=== PATIENT | female | born 1965 | race Caucasian/White ===

== ENCOUNTER 2025-01-13 11:55 | Outpatient (CLI) | payer MEDICAID, SELFPAY ==
[2025-01-13 12:30] LABS: Hematocrit 46.3 % (36-47); Hemoglobin 15.10 g/dL (11.27-16.99); Mean Corpuscular HGB Conc 32.6 g/dL (30-55); Mean Corpuscular Hemoglobin 29.8 pg (27-33); Mean Corpuscular Volume 91.3 fl (85-98); Nucleated Red Blood Cells % 0 %; Platelet Count 477 10^3/cmm (157-399); Red Blood Count 5.07 10^6/uL (3.85-5.65); White Blood Count 9.05 10^3/uL (3.29-11.43)
[2025-01-13 12:50] LABS: Estmated Average Glucose 105; Hemoglobin A1C 5.3 % (4.0-6.0)
[2025-01-13 13:06] LABS: Alanine Aminotransferase 12 U/L (0-33); Albumin Level 4.5 g/dL (3.5-5.2); Alkaline Phosphatase 129 U/L (35-105); Anion Gap 14.2 (5-19); Aspartate Amino Transferase 18 U/L (0-32); Blood Urea Nitrogen 13 mg/dL (6-20); Calcium 9.4 mg/dL (8.5-10.5); Carbon Dioxide 27 mmol/L (22-29); Chloride 101 mmol/L (98-107); Cholesterol 319 mg/dL (0-200); Globulin 3.0 g/dL (1.3-4.6); Glucose 79 mg/dL (65-115); HDL Cholesterol 81 mg/dL (60-100); Iron 147 ug/dL (37-145); Osmolality Calculated 285 mOsm/kg (285-295); Potassium 4.2 mmol/L (3.5-5.1); Sodium 138 mmol/L (136-145); Thyroid Stimulating Hormone 0.08 uIU/mL (0.27-4.20); Total Iron Binding Capacity 310 mcg/dl; Total Protein 7.5 g/dL (6.6-8.7); Triglycerides 186 mg/dL (0-150); Unsaturated Iron Binding 163 ug/dL (112-347)
[2025-01-13 13:22] LABS: HIV 1 & 2 Antigen Non-Reactive (Non-Reactiv)
== END 2025-01-13 11:56 | disposition home or self-care (01) ==
PROVIDERS: PCP Family Medicine; Visit Provider Family Medicine
DX: R94.5 Abnormal results of liver function studies (principal); E78.5 Hyperlipidemia, unspecified; M05.9 Rheumatoid arthritis with rheumatoid factor, unspecified
CPT/HCPCS: 36415; 80053; 80061; 80157; 81596; 83036; 83540; 83550; 84443; 85025; 86803; 87806

== ENCOUNTER 2025-01-23 07:26 | Outpatient (CLI) | payer MEDICAID, SELFPAY ==
--- NOTE | 2025-01-23 07:30 | US_ITS ---
WS: [id number] RIGHT UPPER QUADRANT ULTRASOUND HISTORY: ABNORMAL LIVER FUNCTION TESTS COMPARISON: None available. Liver: 13.1 cm in length. Normal size liver and echogenicity. No bile duct dilatation or mass. Portal Vein: Normal hepatopetal flow with monophasic waveform. Gallbladder: Normally distended gallbladder with no stones or wall thickening. CBD: 0.4 cm Pancreas: Normal size and echogenicity. Right kidney: 10.6 cm in length. Normal size and echogenicity. No hydronephrosis or mass. Aorta and IVC: Unremarkable abdominal aorta and IVC. No ascites. US/US abdomen limited [id number] IMPRESSION: Normal right upper quadrant ultrasound.
== END 2025-01-23 07:27 | disposition home or self-care (01) ==
LOC: RAD 07:27
PROVIDERS: PCP Family Medicine; Visit Provider Family Medicine
DX: R94.5 Abnormal results of liver function studies (principal)
CPT/HCPCS: 76705

== ENCOUNTER 2025-03-06 09:43 | Outpatient (CLI) | payer MEDICAID, SELFPAY ==
--- NOTE | 2025-03-06 09:51 | MM_ITS ---
WS: [id number] BILATERAL SCREENING DIGITAL TOMOSYNTHESIS MAMMOGRAM WITH CAD HISTORY: SCREENING COMPARISON: None available. Bilateral CC and MLO views with tomosynthesis and synthetic mammography submitted. Computer aided detection analyzed. Breast composition: There are scattered areas of fibroglandular density. No suspicious masses, microcalcifications or architectural distortion. Benign coarse calcification RIGHT breast. MM/MM scr BI tomosynthesis [id number] IMPRESSION: BI-RADS: 2 - Benign. FOLLOW UP: 1 Year Follow-up
== END 2025-03-06 09:44 | disposition home or self-care (01) ==
LOC: RAD 09:47
PROVIDERS: PCP Family Medicine; Visit Provider Family Medicine
DX: Z12.31 Encounter for screening mammogram for malignant neoplasm of breast (principal); R92.323 Mammographic fibroglandular density, bilateral breasts; R92.1 Mammographic calcification found on diagnostic imaging of breast
CPT/HCPCS: 77063; 77067

== ENCOUNTER 2025-04-05 16:54 | Observation (INO) | payer MEDICAID, SELFPAY ==
--- OUTSIDE RECORDS SUMMARY | 2025-03-31 15:30 | XMS_ITS | Encounter Summary ---
Author Organization [facility] Address [address] [place] [address] Care Team Providers Care Hangersmith Name Role Phone Unavailable Primary Care Provider Unavailabl e Reason for Referral * Eval and Treat (Urgent) - Authorized Specialty Diagnoses / Procedures Referred By Contac t Referred To Contact Neurology Diagnoses Bilateral foot-drop Procedures NE OFFICE/OUTPATIENT ESTABLISHED MOD MDM 30 MIN NE OFFICE/OUTPATIENT NEW MODERATE MDM 45 MINUTES Lalitha Rai NP [address] [address] Phone: tel: fax: [address] [phone] Phone: tel: fax: Referral ID Status Reason Start Date Expiration Date V isits Requested Visits Authorized [id number] Authorized 03/31/2025 03/31/2026 1 1 AL SAW OPERATOR * Eval and Treat (Urgent) - Authorized Specialty Diagnoses / Procedures Referred By Contac t Referred To Contact Neurology Diagnoses Bilateral foot-drop Procedures NE OFFICE/OUTPATIENT ESTABLISHED MOD MDM 30 MIN NE OFFICE/OUTPATIENT NEW MODERATE MDM 45 MINUTES Lalitha Rai NP [address] [place] [address] Phone: tel: fax: [address] [phone] Phone: tel: fax: Referral ID Status Reason Start Date Expiration Date V isits Requested Visits Authorized [id number] Authorized 03/31/2025 03/31/2026 1 1 AL SAW OPERATOR * Outpatient Surgery (Routine) - Closed Specialty Diagnoses / Procedures Referred By Kathi mobley Referred To Contact Diagnoses History of colon polyps Procedures ENDOSCOPY, COLON, SCREENING NE COLONOSCOPY FLX DX W/COLLJ SPEC WHEN PFRMD NE COLONOSCOPY W/BIOPSY SINGLE/MULTIPLE NE COLSC FLX WITH DIRECTED SUBMUCOSAL NJX ANY SBST NE COLSC FLX W/RMVL OF TUMOR POLYP LESION SNARE TQ Lalitha Rai NP [address] [address] Phone: tel: fax: Referral ID Status Reason Start Date Expiration Date Visits Re quested Visits Authorized [id number] Closed 03/31/2025 05/01/2026 1 1 AL SAW OPERATOR Reason for Visit * Reason Comments Establish Care * Eval and Treat (Routine) - Closed Specialty Diagnoses / Procedures Referred By Kathi mobley Referred To Contact Gastroenterology Diagnoses Abnormal results of liver function studies Procedures NE OFFICE/OUTPATIENT ESTABLISHED MOD MDM 30 MIN NE OFFICE/OUTPATIENT NEW MODERATE MDM 45 MINUTES new request Rick Edwards MD [address] [place] [phone] Phone: tel: fax: [facility] [address] Phone: tel: fax: Referral ID Status Reason Start Date Expiration Date Visits Requested Visits Authorized [id number] Closed Performing Department to Schedule 01/15/2025 01/15/2026 1 1 Encounter Details Date Type Department Care Team (Late st Contact Info) Description 03/31/2025 3:30 PM RADIAL SAW OPERATOR Office Visit [facility] Gastroenterology[address] [address] Lalitha Rai NP [address] [facility] [address] [place] [address] Abnormal results of liver function studies (Primary Dx); Hiatal hernia with GERD; Constipation, unspecified constipation type; History of colon polyps; Bilateral foot-drop Social History Tobacco Use Types Packs/Day Years Used Date Smoking Tobacco: Former Cigarettes 0 Q uit: 06/29/2024 Tobacco Cessation:Counseling Given: No Alcohol Use Standard Drinks/Week Comments Not Currently 0 (1 standard drink = 0.6 oz pur e alcohol) Comments Unknown Sex and Gender Information Value Date Recorded Sex Assigned at Not on file Legal Sex Female 10:47 AM CDT Gender Identity Not on file Sexual Orientation Not on file documented as of this encounter Last Filed Vital Signs Vital Sign Reading Time Taken Comments Blood Pressure 96/62 03/31/2025 3:42 PM RADIAL SAW OPERATOR Pulse 69 03/31/2025 3:42 PM RADIAL SAW OPERATOR Temperature - - Respiratory Rate - - Oxygen Saturation - - Inhaled Oxygen Concentration - - Weight 74.8 kg (165 lb) 03/31/2025 3:42 PM RADIAL SAW OPERATOR Height 165.1 cm (5' 5 ) 03/31/2025 3:42 PM RADIAL SAW OPERATOR Body Mass Index 27.46 03/31/2025 3:42 PM RADIAL SAW OPERATOR documented in this encounter Progress Notes * Lalitha Rai NP - 03/31/2025 4:27 PM CST GI Clinic Note Neha Spear [facility] [id number] 03/31/2025 Collaborative physician: Hector Almodovar MD Referring Provider: No primary care provider on file. History of Present Illness The patient is a 59-year-old female who presents for a new patient evaluation and management, as well as a referral for abnormal liver function studies. She recently moved from the [facility]. She has a documented history of elevated liver enzymes and has been under the care of a mobile heavy equipment operator in [place], [place] within the past 6 months. A liver biopsy was performed approximately 5 months ago, but the results are not available. The cause ofher elevated liver enzymes remains undetermined. She has undergone lab work and an ultrasound at [place]. Ultrasound results not available for review. She reports no history of diabetes or hepatitis and is unaware of any signs of liver failure or decompensation. She has a family history of liver disease, with her maternal grandmother having from liver cancer and her maternal uncle from cirrhosis of the liver. Her mother is an alcoholic, but she is unsure if there is any underlying liver disease. She has a past history of occasional alcohol consumptionbut reports no current use or history of alcohol abuse. She has a history of constipation, typically having a bowel movement every week and a half. She reports feeling bloated and uncomfortable and has resorted to fasting to stimulate bowel movements. Shehas not used any [id number] medications such as MiraLAX. She has a history of polyps, which were removed during a colonoscopy in [place] approximately 15years ago. She reports no family history of colon cancer. She has a history of hiatal hernia, diagnosed during an upper endoscopy in [place], and occasionally experiences vomiting. She manages her symptoms through dietary modifications and does not take any medication for acid reflux. She has additional history of hypertension on spironolactone 25 mg. She takes meloxicam and gabapentin for history of rheumatoid arthritis. She is on levothyroxine for hypothyroidism. She takes Lasix20 mg for bilateral lower extremity edema. She reports a recent onset of difficulty walking, with daily falls and an inability to lift her foot, which started about a month ago. She has an appointment with a neurologist scheduled for 12/2025.She received a notice today that her insurance denied the MRI that her PCP doctor wanted to do. Shehas a history of back problems. She has a history of seizures and takes carbamazepine 200 mg three times daily as well as levetiracetam 500 mg twice daily. She has additional history of COPD. She quit smoking cigarettes about 9 months ago but currently vapes daily. She used to smoke cigarettes for 37 years. She uses cannabis rebollar daily. Alcohol: Occasional past use, no current use Tobacco: Quit smoking cigarettes 9 months ago, currently vapes daily Recreational Drugs: Uses cannabis daily Sexual Practices: Not currently sexually active, prefers male partners, had multiple partners last year PAST SURGICAL HISTORY: - Liver biopsy approximately 5 months ago - Colonoscopy with polyp removal approximately 15 years ago in [place] FAMILY HISTORY Her maternal grandmother of liver cancer. Her maternal uncle of cirrhosis of the liver. Her mother is a major alcoholic. FAMILY HISTORY: family history is not on file. PAST MEDICAL HISTORY: No past medical history on file. MEDICATIONS: Current Outpatient Medications on File Prior to Visit Medication Sig Dispense Refill Ventolin HFA 90 mcg/actuation inhaler Take 1 Puff by inhalation every 6 hours as needed. atorvastatin (LIPITOR) 20 mg tablet Take 1 Tablet by mouth daily. carBAMazepine (TEGretol) 200 mg tablet Take 1 Tablet by mouth 3 times daily. citalopram (CeleXA) 20 mg tablet Take 1 Tablet by mouth daily. furosemide (LASIX) 20 mg tablet Take 1 Tablet by mouth daily. gabapentin (NEURONTIN) 400 mg capsule Take 2 Capsules by mouth 3 times daily. levETIRAcetam (KEPPRA) 500 mg tablet Take 1 Tablet by mouth 2 times daily. levothyroxine 125 mcg tablet Take 1 Tablet by mouth daily. meloxicam (MOBIC) 15 mg tablet Take 1 Tablet by mouth daily. spironolactone (ALDACTONE) 25 mg tablet Take 1 Tablet by mouth daily. budesonide-formoteroL (SYMBICORT) 160-4.5 mcg/actuation HFA Aerosol Inhaler Take 2 Puffs by inhalation 2 times daily. No current facility-administered medications on file prior to visit. ALLERGIES: No Known Allergies REVIEW OF SYSTEMS: Complete ROS was negative aside from what was noted above. PHYSICAL EXAM: VITALS: BP 96/62 Pulse 69 Ht 5' 5 (1.651 m) Wt 74.8 kg (165 lb) BMI 27.46 kg/m?? GEN: Neha Spear is a 59 y.o. female in no acute distress. Using walker, noted bilateral foot drop on ambulation. HEENT: Mucous membranes pink and moist. Sclera anicteric. NECK: Trachea midline without obvious lymphadenopathy or thyromegaly. LUNGS: Regular respiratory effort, no intercostal retractions. HEART: Regular rate. No peripheral edema. ABD: Non-distended, Soft with normoactive BS. RECTAL: Not done at this time. EXT: Without cyanosis, deformity or pitting edema. SKIN: [place], warm, dry. LABS: No results found for: WBC , MANUALWBC , HGB , HGBPOC , HCT , HCTPOC , PLT , MCV No results found for: NA , K , CL , CO2 , CA , BUN , CREAT , GLUCOSE , TOTALPROTEIN , ALBUMIN , BILITOTAL , ALKPHOS , AST , ALT , ANIONGAP , BCRATIO Wt Readings from Last 3 Encounters: 03/31/25 74.8 kg (165 lb) No results found for: TSH , TSHULTRA , THYROIDSTIM No results found for: CRP , CRPHS DIAGNOSTICS: Results Labs - Hemoglobin A1c: 01/13/2025, 5.3 - CBC: 01/13/2025, Unremarkable with no leukocytosis, no anemia - Platelets: 01/13/2025, 477 - HIV: 01/13/2025, Negative - Alkaline Phosphatase: 01/13/2025, 129 - Hepatitis C: 01/13/2025, Negative - CMP: 01/13/2025, Normal kidney function, normal electrolytes - AST: 01/13/2025, 18 - ALT: 01/13/2025, 12 - Albumin: 01/13/2025, 4.5 - Total Bilirubin: 01/13/2025, 0.2 IMPRESSION and PLAN: Lynnette was seen today for establish care. Diagnoses and all orders for this visit: Abnormal results of liver function studies Hiatal hernia with GERD Constipation, unspecified constipation type - polyethylene glycol 3350 (MIRALAX) 17 gram/dose Powder; Take 1 Scoop (17 Grams) by mouth 2 times daily. Dissolve in 8 ounces of fluid and drink entire liquid - psyllium (FIBER-CAP) 0.52 gram Capsule; Take 3 Capsules by mouth 3 times daily. History of colon polyps - ENDOSCOPY, COLON, SCREENING; Future Bilateral foot-drop - AMB REFERRAL TO NEUROLOGY Assessment & Plan 1. Abnormal liver function studies: - Her alkaline phosphatase levels have been persistently elevated for several years, which could potentially be attributed to an autoimmune condition. - Recent lab results indicate normal AST, ALT, and bilirubin levels, with a slight elevation in alkaline phosphatase. - A request for her medical records from [place], [place] and [place] will be faxed. -If additional labs are required upon receipt of these records, she will be contacted to arrange them. -In the absence of her records by the next follow-up, the panel will be repeated. - She has been advised to abstain from alcohol and other hepatotoxic substances. -Bilateral lower extremity edema, She is taking Lasix 20 mg and spironolactone 25 mg daily 2. Constipation: - A prescription for MiraLAX, to be taken at a dosage of 1-2 scoops daily, has been provided. However, she is advised to start with 1 scoop daily and adjust the dosage based on her response. - The addition of a fiber supplement to her diet has also been recommended. - She is encouraged to maintain adequate hydration by consuming a minimum of 64 to 84 ounces of water daily. -Should she continue to experience constipation despite these measures, stronger prescription modalities may be considered. 3. Colon polyps: - A screening colonoscopy will be ordered due to her history of polyps removed approximately 15 years ago. 4. Hiatal hernia/GERD: -trial famotidine 20 mg BID for acid reflux - She reports occasional regurgitation and a previous diagnosis of a hiatal hernia. - She is advised to avoid foods that trigger her symptoms -With worsening symptoms consider repeat EGD 5. Bilateral foot drop: - She has a history of seizures and is currently on carbamazepine 200 mg three times daily and levetiracetam 500 mg twice daily. -Worsening bilateral lower extremity neuropathy and foot drop over the past month with frequent falls. >recommend referral for urgent referral to neurology Follow-up: The patient is scheduled for a follow-up visit in 3 to 4 months. Discussed alarm signs and symptoms that would indicate need for sooner follow up, such as new onsetor worsening dysphagia, evidence of bloody vomit or stool, weight loss, or changes in bowel habits. The patient indicates understanding of these issues and agrees with the plan. Total time taking care of the patient was greater than 45 minutes with greater than 50% of the timespent counseling the patient, coordinating their care, reviewing chart including labwork/procedure workup and other specialty notes Plan of care discussed and developed in collaboration with Hector Almodovar MD Tambra L Sellers, NP This note has been partially dictated using voice recognition software. Every effort has been made to ensure accuracy. Patient provided verbal consent for the use of [employer] to assist in documentation of today's visit. AL SAW OPERATOR documented in this encounter Miscellaneous Notes * Addendum Note - Ibrahima Meng RN - 04/01/2025 9:23 AM CSTAddended by: IBRAHIMA MENG on: 04/01/2025 09:23 AM Modules accepted: Orders AL SAW OPERATOR * Patient Instructions - Lalitha Rai NP - 03/31/2025 4:15 PM RADIAL SAW OPERATOR Thank you for coming to [facility] for your care and allowing me to beyour provider today. You may receive a survey about your experience. We would appreciate your feedback about your visit today. Your feedback will help us continually improve to better meet your needsand expectations. Below are some of the things we discussed today. If you have any questions or concerns, Call [phone], or contact us on the [employer]. We are blessed to be a part of your healthcare team. Thanks again for choosing [facility]. Lalitha Rai, MSN, HARD CANDY BATCH MIXER, SMT TECHNICIAN-C Gastroenterology >sign release to get [facility] >sign release to get records from [facility] liver workup including office notes, liverbiopsy and pathology report, and any labs or imaging. AL SAW OPERATOR AL SAW OPERATOR documented in this encounter Plan of Treatment Upcoming Encounters Date Type Department Care Team (Late st Contact Info) Description 05/11/2025 8:30 AM RADIAL SAW OPERATOR Office Visit [facility] Neurology - [place] [address] [place] [address] Geno Núñez MD [address] [place] [address] 08/05/2025 2:40 PM CDT Hospital Encounter [facility] Endoscopy [address] [place] [address] Hector Almodovar MD [address] [place] [address] 08/05/2025 2:40 PM CDT - 08/05/2025 3:00 PM CDT Surgery [facility] Endoscopy [address] [place] [address] Hector Almodovar MD [address] [facility] [address] [place] [address] COLONOSCOPY Scheduled Orders Name Type Priority Associated Diagnoses Orde r Schedule ENDOSCOPY, COLON, SCREENING GI Routine History of colon polyps Expected: 03/31/2025 (Approximate), Expires: 03/31/2026 Scheduled Procedures Name Priority Associated Diagnoses Date/Ti me COLONOSCOPY History of colon polyps 08/05/2025 2:40 PM CDT Scheduled Referrals Name Type Priority Associated Diagnoses Orde r Schedule AMB REFERRAL TO NEUROLOGY Outpatient Referral Routine Bilateral foot-drop Ordered: 03/31/2025 AMB REFERRAL TO NEUROLOGY Outpatient Referral Routine Bilateral foot-drop Ordered: 04/01/2025 documented as of this encounter Goals Goal Patient Goal Type Associated Problems Recent Progress Patient-Stated? Author Autogenera ángel Goal Care Plan Autogenerated Problem Ibrahima Trejo RN documented as of this encounter Visit Diagnoses Diagnosis Abnormal results of liver function studies- Primary Nonspecific abnormal results of liver function study Hiatal hernia with GERD Constipation, unspecified constipation type History of colon polyps Personal history of colonic polyps Bilateral foot-drop Other acquired deformity of ankle and foot documented in this encounter Additional Health Concerns Active Problems Noted Date Diagnosed Date Autogenerated Problem 04/01/2025 documented as of this encounter
[2025-04-05 16:54] VITALS: BP 150/82; PULSE 55; RESP 15; TEMP 36.2; O2SAT 98; BMI 29.4
--- OUTSIDE RECORDS SUMMARY | 2025-04-05 16:58 | XMS_ITS | Encounter Summary ---
Author Organization [facility] Address [address] [place] [address] Care Team Providers Care Orthopedic Rn Name Role Phone Unavailable Primary Care Provider Unavailabl e Encounter Details Date Type Department Care Team (Late st Contact Info) Description 04/01/2025 Abstract [facility] Gastroenterology- [place] [id number] [place] [address] Pretty Meng RN Social History Tobacco Use Types Packs/Day Years Used Date Smoking Tobacco: Former Cigarettes 0 Q uit: 06/29/2024 Alcohol Use Standard Drinks/Week Comments Not Currently 0 (1 standard drink = 0.6 oz pur e alcohol) Comments Unknown Sex and Gender Information Value Date Recorded Sex Assigned at Not on file Legal Sex Female 10:47 AM CDT Gender Identity Not on file Sexual Orientation Not on file documented as of this encounter Plan of Treatment Upcoming Encounters Date Type Department Care Team (Late st Contact Info) Description 05/11/2025 8:30 AM MANAGER THERAPY Office Visit [facility] Neurology [facility] [address] [facility] [address] [place] [address] Geno Núñez MD [address] [facility] [address] [place] [address] 08/05/2025 2:40 PM CDT Hospital Encounter [facility] Endoscopy [address] [place] [address] Hector Almodovar MD [address] [place] [address] 08/05/2025 2:40 PM CDT - 08/05/2025 3:00 PM CDT Surgery [facility] Endoscopy [address] [place] [address] Hector Almodovar MD [address] [place] [address] COLONOSCOPY Scheduled Procedures Name Priority Associated Diagnoses Date/Ti me COLONOSCOPY History of colon polyps 08/05/2025 2:40 PM CDT documented as of this encounter Goals Goal Patient Goal Type Associated Problems Recent Progress Patient-Stated? Author Autogenera ángel Goal Care Plan Autogenerated Problem No Pretty Meng RN documented as of this encounter Visit Diagnoses Not on filedocumented in this encounter Additional Health Concerns Active Problems Noted Date Diagnosed Date Autogenerated Problem 04/01/2025 documented as of this encounter
--- OUTSIDE RECORDS SUMMARY | 2025-04-05 16:58 | XMS_ITS | Clinical Summary ---
Author Organization [facility] de Address [address] [place] [address] Phone Care Team Providers Care Payroll Clerk Name Role Phone Unavailable Primary Care Provider Unavailabl e Allergies No known active allergies Medications Ventolin HFA 90 mcg/actuation inhaler Take 1 Puff by inhalation every 6 hours as needed. Active atorvastatin (LIPITOR) 20 mg tablet Take 1 Tablet by mouth daily. Active carBAMazepine (TEGretol) 200 mg tablet Take 1 Tablet by mouth 3 times daily. Active citalopram (CeleXA) 20 mg tablet Take 1 Tablet by mouth daily. Active furosemide (LASIX) 20 mg tablet Take 1 Tablet by mouth daily. Active gabapentin (NEURONTIN) 400 mg capsule Take 2 Capsules by mouth 3 times daily. Active levETIRAcetam (KEPPRA) 500 mg tablet Take 1 Tablet by mouth 2 times daily. Active levothyroxine 125 mcg tablet Take 1 Tablet by mouth daily. Active meloxicam (MOBIC) 15 mg tablet Take 1 Tablet by mouth daily. Active spironolactone (ALDACTONE) 25 mg tablet Take 1 Tablet by mouth daily. Active budesonide-formot Giselle (SYMBICORT) 160-4.5 mcg/actuation HFA Aerosol Inhaler Take 2 Puffs by inhalation 2 times daily. Active polyethylene glycol 3350 (MIRALAX) 17 gram/dose PowderIndications :Constipation, unspecified constipation type Take 1 Scoop (17 Grams) by mouth 2 times daily. Dissolve in 8 ounces of fluid and drink entire liquid 527 Gram 11 5 Active psyllium (FIBER-CAP) 0.52 gram CapsuleIndication s:Constipation, unspecified constipation type Take 3 Capsules by mouth 3 times daily. 5 Active famotidine (PEPCID) 20 mg tabletIndications :Hiatal hernia with GERD Take 1 Tablet (20 mg) by mouth 2 times daily. 60 Tablet 11 5 Active Active Problems No known active problems Encounters Date Type Department Care Team Description 04/01/2025 Abstract [facility] Gastroenterology[address] [phone] Pretty Meng RN 03/31/2025 3:30 PM GROUNDMAN/LINEMAN Office Visit [facility] Gastroenterology[address] [phone] Lalitha Rai NP Abnormal results of liver function studies (Primary Dx); Hiatal hernia with GERD; Constipation, unspecified constipation type; History of colon polyps; Bilateral foot-drop 01/15/2025 Orders Only [facility] Gastroenterology[address] [phone] Rick Edwards MD Abnormal results of liver function studies (Primary Dx) from Last 3 Months Social History Tobacco Use Types Packs/Day Years [...] on file Sexual Orientation Not on file Last Filed Vital Signs Vital Sign Reading Time Taken Comments Blood Pressure 96/62 03/31/2025 3:42 PM GROUNDMAN/LINEMAN Pulse 69 03/31/2025 3:42 PM GROUNDMAN/LINEMAN Temperature - - Respiratory Rate - - Oxygen Saturation - - Inhaled Oxygen Concentration - - Weight 74.8 kg (165 lb) 03/31/2025 3:42 PM GROUNDMAN/LINEMAN Height 165.1 cm (5' 5 ) 03/31/2025 3:42 PM GROUNDMAN/LINEMAN Body Mass Index 27.46 03/31/2025 3:42 PM GROUNDMAN/LINEMAN Plan of Treatment Upcoming Encounters Date Type Department Care Team (Late st Contact Info) Description 05/11/2025 8:30 AM GROUNDMAN/LINEMAN Office Visit [facility] Neurology - [place] [address] [facility] [address] [place] [phone] Geno Núñez MD [address] [phone] 08/05/2025 2:40 PM CDT Hospital Encounter [facility] Endoscopy [address] [place] [phone] Hector Almodovar MD [address] [phone] 08/05/2025 2:40 PM CDT - 08/05/2025 3:00 PM CDT Surgery [facility] Endoscopy [address] [place] [address] Hector Almodovar MD [address] [phone] COLONOSCOPY Scheduled Procedures Name Priority Associated Diagnoses Date/Ti me COLONOSCOPY History of colon polyps 08/05/2025 2:40 PM CDT Health Maintenance Due Date Last Done Comments Pre-Diabetes and Diabetes Screening 1965 HEPATITIS B VACCINES (1 of 3 - 19+ 3-dose series) 08/12 HPV/Cotest (21-29) 08/29/1988 CERVICAL CANCER SCREENING 08/29/1997 HPV/Cotest (30-65) 08/29/1997 PAP SMEAR 08/29/1997 BREAST CANCER SCREENING 2007 COLORECTAL SCREENING 08/29/2012 Colorectal Cancer Screening 08/29/2012 FIT-DNA Q 3 years 08/29/2012 FIT/FOBT Q 1 year 08/29/2012 Flex Sig/CT Colonography Q 5 years 08/29/2012 ZOSTER VACCINE (1 of 2) 08/29/2017 DTAP/TDAP/TD VACCINES (1 - Tdap) 11/12/2022 11/12/19 23 INFLUENZA VACCINE (#1) 2024 Goals Goal Patient Goal Type Associated Problems Recent Progress Patient-Stated? Author Autogenera ángel Goal Care Plan Autogenerated Problem No Pretty Meng RN Additional Health Concerns Active Problems Noted Date Diagnosed Date Autogenerated Problem 04/01/[address] [place] [address] HEALTH PLAN MEDICAID
--- NOTE | 2025-04-05 16:59 | W.ED.SEIZURE ---
HPI - Seizure General: Chief Complaint: Seizure Stated Complaint: seizure Time Seen by Provider: 04/05/25 16:55 Source: patient and EMS Mode of arrival: EMS Limitations: altered mental status (post ictal) History of Present Illness: HPI Narrative: Patient is a 59-year-old female presents to ED today via EMS after a seizure. She reportedly does have a history of seizures. According to her report, she was in the kitchen cooking when she had a seizure and fell backwards and struck her head. She later had another seizure after EMS arrived. Upon arrival, she is postictal. She smells of alcohol. She does admit to drinking as well as marijuana use. She states she has a history of epilepsy and takes Carbamazepine and Keppra. He states she has been compliant with these medications. She does complain of a headache. She arrives in a c-collar. Shortly after my examination, she was witnessed to have another seizure. MD complaint: seizure Onset (ago): hour(s) Description of Episode: loss of consciousness and tonic-clonic movement -: second(s) Witnessed: Yes - by Bystander Trauma: Yes Seizure History: Yes Place: Home Possible Precipitating Event: drug use and alcohol withdrawal Associated symptoms: Deny chest pain, chills, fever(s), malaise or syncope Treatments prior to arrival: none Related Data Home Medications ?Medication ?Instructions ?Recorded ?Confirmed albuterol sulfate 90 mcg/actuation 2 puff inhalation Q6H PRN 03/20/25 03/20/25 aerosol inhaler (Ventolin HFA) atorvastatin 20 mg tablet (Lipitor) 20 mg PO DAILY 03/20/25 03/20/25 carbamazepine 200 mg tablet 200 mg PO BID 03/20/25 03/20/25 (Epitol) citalopram 20 mg tablet 20 mg PO DAILY 03/20/25 03/20/25 duloxetine 20 mg capsule,delayed 20 mg PO BID 03/20/25 03/20/25 release fluticasone propionate 44 2 puff inhalation BID 03/20/25 03/20/25 mcg/actuation HFA aerosol inhaler furosemide 20 mg tablet (Lasix) 20 mg PO DAILY 03/20/25 03/20/25 gabapentin 400 mg capsule 400 mg PO TID 03/20/25 03/20/25 levetiracetam 500 mg tablet 500 mg PO BID 03/20/25 03/20/25 levothyroxine 200 mcg capsule 200 mcg PO DAILY 03/20/25 03/20/25 meloxicam 15 mg tablet 15 mg PO DAILY 03/20/25 03/20/25 naproxen sodium 550 mg tablet 550 mg PO Q12H PRN 03/20/25 03/20/25 spironolactone 25 mg tablet 25 mg PO DAILY 03/20/25 03/20/25 Previous Rx's ?Medication ?Instructions ?Recorded albuterol sulfate 0.63 mg/3 mL 0.63 mg (3 mL) inhalation QID PRN 03/20/25 solution for nebulization shortness of breath or wheezing #90 mL budesonide-formoterol HFA 160 2 puff inhalation BID #10.2 grams 03/20/25 mcg-4.5 mcg/actuation aerosol inhaler nebulizers #1 ea 03/20/25 tiotropium bromide 2.5 2 inh inhalation QAM #4 grams 03/20/25 mcg/actuation mist for inhalation Allergies Allergy/AdvReac Type Severity Reaction Status Date / Time No Known Allergies Allergy Verified 03/20/25 08:22 Review of Systems Narrative: post-ictal but does occasionally answer questions Const: Denies: fever(s), chills, body aches, fatigue or malaise Eyes: Denies: change in vision or blurry vision Card: Denies: chest pain, palpitations, irregular heart rhythm, lightheadedness, syncope or dyspnea on exertion Resp: Denies: dyspnea, productive cough or pain on inspiration GI: Denies: abdominal pain, nausea, vomiting, heartburn or diarrhea : Denies: dysuria Musc: Denies: neck pain, back pain or joint pain Skin/Breast: Denies: rash Neuro: Reports: headache(s) and seizure-like activity; Denies: dizziness PFSH ED PFSH: Medical History Ex-cigarette smoker Abnormal liver function test Seizure disorder Rheumatoid aortitis Osteoarthritis Lower extremity edema Hypothyroidism Hypertension Hyperlipidemia Depression COPD (chronic obstructive pulmonary disease) Asthma Surgical History Hx of tonsillectomy History of liver biopsy Family History Mother Heart disease Alcohol dependence Depression Social History Smoking and tobacco/nicotine status: current every day tobacco/nicotine user e-cigarettes E-Cigarette Details: vaporizer device and with nicotine E-cig/vape details: vapes daily-1 vape cartridge weekly Second hand smoke exposure: Yes Alcohol intake: current Substance/Drug Use: current Physical Exam Const: COMMON NORMALS: average body habitus, healthy appearing and well nourished GENERAL APPEARANCE: cooperative ORIENTATION/CONSCIOUSNESS: Yes awake, Yes oriented to person and Yes oriented to place OTHER: post-ictal HENMT: COMMON NORMALS: normocephalic HEAD & SCALP: normocephalic and hematoma FACE & SINUS: normal facial exam Eye: COMMON NORMALS: Equal, round and reactive pupils present and EOMs intact bilaterally GENERAL EYE: appearance normal, both eyes and all related structures and normal light reflex PUPIL: Yes Equal, round and reactive pupils present DIRECT OPHTHALMOSCOPY: Yes normal light reflex Neck/C-Spine: OTHER: in c-collar Chest: COMMONS NORMALS: normal inspection of the chest and normal palpation of entire chest wall Resp: COMMON NORMALS: normal respiratory effort and clear to auscultation bilaterally AUSCULTATION: clear to auscultation bilaterally Cardio: COMMON NORMALS: regular rate and regular rhythm RATE: regular rate RHYTHM: regular rhythm GI: COMMON NORMALS: Normal to inspection, nondistended, normoactive bowel sounds present, Soft to palpation, non-tender, No hepatosplenomegaly present and no masses PALPATION: Yes Soft to palpation and Yes No hepatosplenomegaly present : COMMON NORMALS: Yes no CVA tenderness BLADDER/KIDNEY EXAM: Yes no CVA tenderness Back/Pelvis: COMMON NORMALS: no CVA tenderness, thoracic and lumbar spine normal to inspection and no thoracic nor lumbar tenderness Extremity: GENERAL: Yes normal exam except as noted Neuro: SENSORIUM/ORIENTATION: Yes oriented to person and Yes oriented to place Course ED course: Dr. Victor also called to room when she began seizing. It lasted a few seconds. He is ordering IV medications including 2g Keppra and 2mg Ativan. Seizure pads placed. She did not require suctioning/oxygen. We will move her to room 10 as a precaution. Consultations: Consultation #1: Dr. Cavanaugh-accepts obs admit Vital Signs: Vital signs: Vital Signs Temperature 97.2 F L 04/05/25 16:54 Pulse Rate 54 L 04/05/25 19:58 Respiratory Rate 15 04/05/25 16:54 Blood Pressure 150/82 04/05/25 16:54 Pulse Oximetry 96 04/05/25 19:58 Oxygen Delivery Me thod Room Air 04/05/25 19:58 MDM - Seizure MDM Narrative Medical decision making narrative: Patient a 59-year-old female with a history of epilepsy currently on Carbamazepine and Keppra here after she had a seizure at home. Patient states she has been compliant with her medications. She reportedly fell backwards and struck her head. She did have an additional seizure immediately after my initial examination and another while in CT scan prior to medications being administered. She has not had any further seizures after IV Ativan and Keppra. Patient's blood work overall nonactionable. Mildly elevated lactic at 2.6 most likely is seizure related. No obvious evidence of infection. CT imaging did show a very small 1 to 2 mm possible trace acute extra-axial/subdural hemorrhage although radiologist stated this could be chronic. Discussed with Dr. Martin who felt this could probably be managed here by hospitalist and repeat CT imaging in 6 hours. He will also see/assess patient. I did discuss with hospitalist Dr. Cavanaugh who will admit patient with plan to repeat CT imaging in 6 hours. Requested obs admit. Differential Diagnosis Seizure Differential Diagnosis: Likely intractable seizure disorder, focal seizure, generalized seizure, epileptic seizure and status epilepticus Medical Records Attestation: I reviewed the patient's medical records. Lab Data Attestation: I reviewed the patient's lab results. 04/05/25 17:36 04/05/25 17:36 Labs: Radiology Impressions Chest X-Ray 04/05/25 17:03 IMPRESSION: 1. Bibasilar atelectasis. 2. Possible atelectasis versus early infectious process in the left lower lobe. Head CT 04/05/25 17:03 IMPRESSION: Trace acute extra-axial hemorrhage along the anterior interhemispheric fissure is not excluded. ADDENDUM: 04/05/251915 THIS REPORT CONTAINS FINDINGS THAT MAY BE CRITICAL TO PATIENT CARE. The findings were verbally communicated via telephone conference with MIGUEL ANGEL ANTHONY at 7:12 PM PICK UP AND DELIVERY DRIVER on 04/05/2025. The findings were acknowledged and understood. Cervical Spine CT 04/05/25 17:08 IMPRESSION: No acute cervical spine fracture. Laboratory Results WBC 9.77 10^3/uL (3.29-11.43) 04/05/25 17:36 RBC 4.38 10^6/uL (3.85-5.65) 04/05/25 17:36 Hgb 13.40 g/dL (11.27-16.99) 04/05/25 17:36 Hct 39.5 % (36-47) 04/05/25 17:36 MCV 90.2 fl (85-98) 04/05/25 17:36 MCH 30.6 pg (27-33) 04/05/25 17:36 MCHC 33.9 g/dL (30-55) 04/05/25 17:36 RDW 13.3 % (12.1-15.1) 04/05/25 17:36 Plt Count 379 10^3/cmm (157-399) 04/05/25 17:36 MPV 8.9 fL (7.4-10.4) 04/05/25 17:36 Neut % (Auto) 59.9 % 04/05/25 17:36 Lymph % (Auto) 28.5 % 04/05/25 17:36 Winston % (Auto) 6.3 % 04/05/25 17:36 Eos % (Auto) 4.0 % 04/05/25 17:36 Baso % (Auto) 0.8 % 04/05/25 17:36 Neut # (Auto) 5.85 10^3/uL (1.8-7.7) 04/05/25 17:36 Lymph # (Auto) 2.8 10^3/uL (0.8-4.8) 04/05/25 17:36 Winston # (Auto) 0.6 10^3/uL (0.2-0.9) 04/05/25 17:36 Eos # (Auto) 0.4 10^3/uL (0.0-0.8) 04/05/25 17:36 Baso # (Auto) 0.1 10^3/uL (0.0-0.1) 04/05/25 17:36 Nucleated RBC % (auto) 0 % 04/05/25 17:36 Nucleated RBCs # 0.0 /100WBC 04/05/25 17:36 Specimen Type Arterial 04/05/25 17:42 Sample Site Brachial, left 04/05/25 17:42 ABG pH 7.38 (7.35-7.45) 04/05/25 17:42 ABG pCO2 40.0 mmHg (35-45) 04/05/25 17:42 ABG pO2 79.6 mmHg (80.0-100.0) L 04/05/25 17:42 ABG PO2/FiO2 Ratio 379 04/05/25 17:42 ABG HCO3 23.5 mmol/L (22-26) 04/05/25 17:42 ABG O2 Saturation 96.4 04/05/25 17:42 ABG Base Excess -1.6 mmol/L (-2.0-2.0) 04/05/25 17:42 Dl Test N/a 04/05/25 17:42 A-a O2 Gradient 2.7 mmHg (5-10) L 04/05/25 17:42 Hematocrit 41.2 % (37-47) 04/05/25 17:42 Hgb O2 Saturation 92.5 % (95-100) L 04/05/25 17:42 Carboxyhemoglobin 3.1 %THgb (0.4-20.1) 04/05/25 17:42 Methemoglobin 1.1 % (0.4-1.5) 04/05/25 17:42 Total Hemoglobin 13.5 g/dL (12-16) 04/05/25 17:42 Sodium 138.0 mmol/L (131-143) 04/05/25 17:42 Potassium 3.6 mmol/L (3.5-5.0) 04/05/25 17:42 Glucose 84.0 mg/dL (70-115) 04/05/25 17:42 Ionized Calcium 1.1 mmol/L (1.1-1.4) 04/05/25 17:42 O2 Delivery Device Room air 04/05/25 17:42 FiO2 21.0 % 04/05/25 17:42 Grinder Outside Diameter ID Amh 04/05/25 17:42 Sodium 137 mmol/L (136-145) 04/05/25 17:36 Potassium 3.8 mmol/L (3.5-5.1) 04/05/25 17:36 Chloride 100 mmol/L (98-107) 04/05/25 17:36 Carbon Dioxide 22 mmol/L (22-29) 04/05/25 17:36 Anion Gap 18.8 (5-19) 04/05/25 17:36 BUN 12 mg/dL (6-20) 04/05/25 17:36 Creatinine 0.7 mg/dL (0.5-0.9) 04/05/25 17:36 GFR Calculation 86.2 mL/min (90-130) L 04/05/25 17:36 Glucose 81 mg/dL (65-115) 04/05/25 17:36 Calculated Osmolality 283 mOsm/kg (285-295) L 04/05/25 17:36 Lactic Acid 2.6 mmol/L (0.5-2.2) H 04/05/25 17:36 Calcium 8.4 mg/dL (8.5-10.5) L 04/05/25 17:36 Total Bilirubin 0.2 mg/dL (0.15-1.2) 04/05/25 17:36 AST 19 U/L (0-32) 04/05/25 17:36 ALT 19 U/L (0-33) 04/05/25 17:36 Alkaline Phosphatase 124 U/L (35-105) H 04/05/25 17:36 Total Protein 6.7 g/dL (6.6-8.7) 04/05/25 17:36 Albumin 4.0 g/dL (3.5-5.2) 04/05/25 17:36 Globulin 2.7 g/dL (1.3-4.6) 04/05/25 17:36 Urine Color Cancelled 04/05/25 19:53 Urine Color Yellow (Yellow) 04/05/25 19:53 Urine Appearance Cancelled 04/05/25 19:53 Urine Appearance Clear (CLEAR) 04/05/25 19:53 Urine pH 6.5 (5-7) 04/05/25 19:53 Urine pH Cancelled 04/05/25 19:53 Ur Specific Alleene 1.016 (1.005-1.030) 04/05/25 19:53 Ur Specific Alleene Cancelled 04/05/25 19:53 Urine Protein Cancelled 04/05/25 19:53 Urine Protein Negative (Negative) 04/05/25 19:53 Urine Glucose (UA) Cancelled 04/05/25 19:53 Urine Glucose (UA) Negative (Normal) 04/05/25 19:53 Urine Ketones Cancelled 04/05/25 19:53 Urine Ketones Negative (Negative) 04/05/25 19:53 Urine Blood Cancelled 04/05/25 19:53 Urine Blood Negative (Negative) 04/05/25 19:53 Urine Nitrate Cancelled 04/05/25 19:53 Urine Nitrate Negative (Negative) 04/05/25 19:53 Urine Bilirubin Cancelled 04/05/25 19:53 Urine Bilirubin Negative (Negative) 04/05/25 19:53 Prot Sulfosalicylic Acd Cancelled 04/05/25 19:53 Urine Urobilinogen 0.2 mg/dL (Negative) 04/05/25 19:53 Urine Urobilinogen Cancelled 04/05/25 19:53 Ur Leukocyte Esterase Cancelled 04/05/25 19:53 Ur Leukocyte Esterase Negative (Negative) 04/05/25 19:53 Urine RBC 0-2 /hpf (0-2) 04/05/25 19:53 Urine RBC Cancelled 04/05/25 19:53 Urine WBC 0-5 /hpf (0-5) 04/05/25 19:53 Urine WBC Cancelled 04/05/25 19:53 Ur Squamous Epith Cells 0-5 /hpf (0-5) 04/05/25 19:53 Ur Squamous Epith Cells Cancelled 04/05/25 19:53 Ur Transition Epith Cell Cancelled 04/05/25 19:53 Ur Renal Epithelial Cell Cancelled 04/05/25 19:53 Calcium Oxalate Crystal Cancelled 04/05/25 19:53 Uric Acid Crystals Cancelled 04/05/25 19:53 Triple Phos Crystals Cancelled 04/05/25 19:53 Other Crystals Cancelled 04/05/25 19:53 Amorphous Sediment Cancelled 04/05/25 19:53 Amorphous Sediment Not Reportable 04/05/25 19:53 Urine Bacteria Cancelled 04/05/25 19:53 Urine Bacteria None seen /hpf (NONE) 04/05/25 19:53 Hyaline Casts 1.21 /lpf 04/05/25 19:53 Hyaline Casts Cancelled 04/05/25 19:53 Fine Granular Casts Cancelled 04/05/25 19:53 Coarse Granular Casts Cancelled 04/05/25 19:53 RBC Casts Cancelled 04/05/25 19:53 Other Casts Cancelled 04/05/25 19:53 Urine Mucus Cancelled 04/05/25 19:53 Urine Trichomonas Cancelled 04/05/25 19:53 Urine Yeast Cancelled 04/05/25 19:53 Urine Sperm Cancelled 04/05/25 19:53 Ur Oval Fat Bodies Cancelled 04/05/25 19:53 Urine Opiates Screen Negative ng/mL (Negative) 04/05/25 19:53 Ur Barbiturates Screen Negative ng/mL (Negative) 04/05/25 19:53 Ur Phencyclidine Scrn Negative ng/mL (Negative) 04/05/25 19:53 Ur Amphetamines Screen Negative ng/mL (Negative) 04/05/25 19:53 U Benzodiazepines Scrn Positive ng/mL (Negative) H 04/05/25 19:53 Urine Cocaine Screen Negative ng/mL (Negative) 04/05/25 19:53 U Marijuana (THC) Screen Positive ng/mL (Negative) H 04/05/25 19:53 Ethyl Alcohol 26 mg/dL (0-10) H 04/05/25 17:36 All radiology interpretation(s) finalized by discharge Discharge Plan Discharge Patient Disposition: Placed in Observation Clinical Impression: Seizure disorder, Subdural hematoma Coding Level of Care Code ED Industrial Truck Driver for Yuliet White
--- NOTE | 2025-04-05 17:03 | CTR_ITS ---
PROCEDURE INFORMATION: Exam: CT Head Without Contrast Exam date and time: 04/05/2025 5:32 PM Age: 59 years old Clinical indication: Injury or trauma and condition or disease; Fall; Convulsions or seizures; Unspecified; Additional info: Trauma. Seizure TECHNIQUE: Imaging protocol: Computed tomography of the head without contrast. Radiation optimization: All CT scans at this facility use at least one of these dose optimization techniques: automated exposure control; mA and/or kV adjustment per patient size (includes targeted exams where dose is matched to clinical indication); or iterative reconstruction. COMPARISON: CT cervical spin wo con* [id number] 04/05/2025 5:32 PM RADIATION DOSE METRICS: Total DLP (mGy-cm): 1070.5 FINDINGS: Brain: Trace hyperattenuation is seen along the anterior interhemispheric fissure measuring 1-2 mm on image 32 of series 6. This could represent a chronic finding versus trace acute extra-axial/subdural hemorrhage. No mass effect. No midline shift. Cerebral ventricles: Within normal limits for age. Paranasal sinuses: Visualized sinuses are unremarkable. Mastoid air cells: Visualized mastoid air cells are well aerated. Bones: Unremarkable. Soft tissues: Posterior scalp hematoma. CT/CT head wo con* [id number] IMPRESSION: Trace acute extra-axial hemorrhage along the anterior interhemispheric fissure is not excluded.
--- NOTE | 2025-04-05 17:03 | XRR_ITS ---
PROCEDURE INFORMATION: Exam: XR Chest Exam date and time: 04/05/2025 5:32 PM Age: 59 years old Clinical indication: EMS arrival for seizure activity TECHNIQUE: Imaging protocol: Radiologic exam of the chest. Views: 1 view. COMPARISON: CT cervical spin wo con* [id number] 04/05/2025 5:32 PM FINDINGS: Lungs: Bibasal atelectasis. Possible atelectasis versus early infectious process in the left lower lobe. Pleural spaces: No pleural effusion or pneumothorax noted. Heart/Mediastinum: There is mild cardiomegaly. Bones/joints: No acute osseous abnormality. Intraperitoneal space: There is no free intraperitoneal gas. XR/XR chest 1V portable [id number] IMPRESSION: 1. Bibasilar atelectasis. 2. Possible atelectasis versus early infectious process in the left lower lobe.
--- NOTE | 2025-04-05 17:08 | CTR_ITS ---
PROCEDURE INFORMATION: Exam: CT Cervical Spine Without Contrast Exam date and time: 04/05/2025 5:32 PM Age: 59 years old Clinical indication: Injury or trauma; Fall; Blunt trauma; Additional info: Seizure TECHNIQUE: Imaging protocol: Computed tomography of the cervical spine without contrast. Radiation optimization: All CT scans at this facility use at least one of these dose optimization techniques: automated exposure control; mA and/or kV adjustment per patient size (includes targeted exams where dose is matched to clinical indication); or iterative reconstruction. COMPARISON: CT head wo con* [id number] 04/05/2025 5:32 PM RADIATION DOSE METRICS: Total DLP (mGy-cm): 232.5 FINDINGS: Bones: No acute cervical spine fracture. Straightening of cervical spine. Minimal likely chronic grade 1 anterolisthesis of C3 on C4. Multilevel degenerative disc disease, uncovertebral hypertrophy, and facet arthropathy. C5-C6 canal stenosis. Lungs: Lung apices are normal. Soft tissues: Unremarkable. CT/CT cervical spin wo con* [id number] IMPRESSION: No acute cervical spine fracture.
[2025-04-05] MEDS: LORazepam 2 mg/mL INJ 1 mL IVP (17:42)
[2025-04-05 17:44] LABS: Hematocrit 39.5 % (36-47); Hemoglobin 13.40 g/dL (11.27-16.99); Mean Corpuscular HGB Conc 33.9 g/dL (30-55); Mean Corpuscular Hemoglobin 30.6 pg (27-33); Mean Corpuscular Volume 90.2 fl (85-98); Nucleated Red Blood Cells % 0 %; Platelet Count 379 10^3/cmm (157-399); Red Blood Count 4.38 10^6/uL (3.85-5.65); White Blood Count 9.77 10^3/uL (3.29-11.43)
[2025-04-05] MEDS: levETIRAcetam 2,000 MG/200 ML PREMIX 400 MG IV (17:47)
[2025-04-05 17:53] LABS: ABG PCO2 40.0 mmHg (35-45); ABG PH Result 7.38 (7.35-7.45); Alveolar-Arterial Oxygen Gradi 2.7 mmHg (5-10); Arterial Blood Gas Hematocrit 41.2 % (37-47); Blood Gas Operator Identificat AMH; Blood Gas Sample Site Brachial, left; Blood Gas Sample Type Arterial; Carboxyhemoglobin 3.1 %THgb (0.4-20.1); Glucose Level-ABG 84.0 mg/dL (70-115); HCO3 ABG 23.5 mmol/L (22-26); Ionized Calcium Level - ABG 1.1 mmol/L (1.1-1.4); Methemoglobin 1.1 % (0.4-1.5); Oxygen Saturation ABG 96.4; PO2 ABG 79.6 mmHg (80.0-100.0); PO2 FiO2 Ratio Arterial Blood 379; Potassium Level - ABG 3.6 mmol/L (3.5-5.0); Sodium Level - ABG 138.0 mmol/L (131-143)
[2025-04-05 18:09] LABS: Alanine Aminotransferase 19 U/L (0-33); Albumin Level 4.0 g/dL (3.5-5.2); Alcohol Level 26 mg/dL (0-10); Alkaline Phosphatase 124 U/L (35-105); Anion Gap 18.8 (5-19); Aspartate Amino Transferase 19 U/L (0-32); Blood Urea Nitrogen 12 mg/dL (6-20); Calcium 8.4 mg/dL (8.5-10.5); Carbon Dioxide 22 mmol/L (22-29); Chloride 100 mmol/L (98-107); Globulin 2.7 g/dL (1.3-4.6); Glucose 81 mg/dL (65-115); Lactic Sepsis W/Reflex 2.6 mmol/L (0.5-2.2); Osmolality Calculated 283 mOsm/kg (285-295); Potassium 3.8 mmol/L (3.5-5.1); Sodium 137 mmol/L (136-145); Total Protein 6.7 g/dL (6.6-8.7)
--- NOTE | 2025-04-05 19:06 | PM.HP ---
Providers/Chief Complaint Primary Care Provider: Rick Edwards MD Chief Complaint: seizure History of Present Illness Neha Spear is a 59 year old female with history significant for seizure disorder, COPD, hypertension, and lower extremity weakness causing frequent falls for the past 6 months, who presents after sustaining a fall and subsequent seizures. Patient mentions she was in her kitchen when she got dizzy, stepped backwards and tripped on her own feet. Her next memory is that of being in the hospital. Her roommates were present for the fall and patient was told she had seizure activity around that time. It is not entirely clear if the patient had a seizure before or after her fall. Of note, the patient did have some beer this evening but did not finish her beverage and feels the dizziness may be related. For the past 6 months she has been having frequent falls and is set to see neurology for her legs not working. She has been using a walker to aid in ambulation but it was not near by at the time. She has been compliant with her prescribed medications and her keppra has recently been increased from 500mg to 1000mg BID. Last seizure was a few days ago per patient. She says she has fallen almost daily in the past 6 months. She otherwise denies recent illness, fevers, or chills. No other changes to her medication regimen. Medications/Allergies Home Medications ?Medication ?Instructions ?Recorded ?Confirmed ?Last Taken ?Type albuterol sulfate 0.63 mg/3 mL 0.63 mg (3 mL) inhalation QID PRN 03/20/25 03/20/25 Unknown Rx solution for nebulization shortness of breath or wheezing #90 mL albuterol sulfate 90 mcg/actuation 2 puff inhalation Q6H PRN 03/20/25 03/20/25 Unknown History aerosol inhaler (Ventolin HFA) atorvastatin 20 mg tablet (Lipitor) 20 mg PO DAILY 03/20/25 03/20/25 Unknown History budesonide-formoterol HFA 160 2 puff inhalation BID #10.2 grams 03/20/25 03/20/25 Unknown Rx mcg-4.5 mcg/actuation aerosol inhaler carbamazepine 200 mg tablet 200 mg PO BID 03/20/25 03/20/25 Unknown History (Epitol) citalopram 20 mg tablet 20 mg PO DAILY 03/20/25 03/20/25 Unknown History duloxetine 20 mg capsule,delayed 20 mg PO BID 03/20/25 03/20/25 Unknown History release fluticasone propionate 44 2 puff inhalation BID 03/20/25 03/20/25 Unknown History mcg/actuation HFA aerosol inhaler furosemide 20 mg tablet (Lasix) 20 mg PO DAILY 03/20/25 03/20/25 Unknown History gabapentin 400 mg capsule 400 mg PO TID 03/20/25 03/20/25 Unknown History levetiracetam 500 mg tablet 500 mg PO BID 03/20/25 03/20/25 Unknown History levothyroxine 200 mcg capsule 200 mcg PO DAILY 03/20/25 03/20/25 Unknown History meloxicam 15 mg tablet 15 mg PO DAILY 03/20/25 03/20/25 Unknown History naproxen sodium 550 mg tablet 550 mg PO Q12H PRN 03/20/25 03/20/25 Unknown History nebulizers #1 ea 03/20/25 03/20/25 Unknown Rx spironolactone 25 mg tablet 25 mg PO DAILY 03/20/25 03/20/25 Unknown History tiotropium bromide 2.5 2 inh inhalation QAM #4 grams 03/20/25 03/20/25 Unknown Rx mcg/actuation mist for inhalation Allergies Allergy/AdvReac Type Severity Reaction Status Date / Time No Known Allergies Allergy Verified 03/20/25 08:22 PFSH Acute PFSH: Medical History Ex-cigarette smoker Abnormal liver function test Seizure disorder Rheumatoid aortitis Osteoarthritis Lower extremity edema Hypothyroidism Hypertension Hyperlipidemia Depression COPD (chronic obstructive pulmonary disease) Asthma Surgical History Hx of tonsillectomy History of liver biopsy Family History Mother Heart disease Alcohol dependence Depression Social History Smoking and tobacco/nicotine status: current every day tobacco/nicotine user e-cigarettes E-Cigarette Details: vaporizer device and with nicotine E-cig/vape details: vapes daily-1 vape cartridge weekly Second hand smoke exposure: Yes Alcohol intake: current Substance/Drug Use: current Vitals/I&O/Wt Last Vital Signs Temp 97.2 F L 04/05/25 16:54 Pulse 55 L 04/05/25 16:54 Resp 15 04/05/25 16:54 BP 150/82 04/05/25 16:54 Pulse Ox 98 04/05/25 16:54 O2 Del Method Room Air 04/05/25 16:54 04/05/25 04/05/25 04/05/25 06:59 14:59 22:59 Intake Total 200 / 200 Balance 200 / 200 Weight last 48 hrs Weight 80.286 kg Physical Exam Const: COMMON NORMALS: no acute distress and patient oriented x3 HENMT: HEAD & SCALP: scalp tenderness (at the occiput) Resp: COMMON NORMALS: normal respiratory effort and clear to auscultation bilaterally Cardio: COMMON NORMALS: regular rate, regular rhythm, S1 normal heart sound present, S2 normal heart sound present, No gallops present (Cardio), No clicks present (Cardio), No murmurs present (Cardio) and No rub (Cardio) GI: COMMON NORMALS: Normal to inspection, nondistended, normoactive bowel sounds present, Soft to palpation and non-tender Neuro: OTHER: 1/5 lower extremity strength. Diminished sensation noted. Skin: COMMON NORMALS: no rashes or lesions noted Data 04/05/25 17:36 04/05/25 17:36 A&P Assessment and plan 1. Seizure disorder: - Unclear if truly had seizure but given traumatic injury and recent reports of seizure, will admit for closer monitoring - Continue her home AEDs, increase keppra to 1000mg BID - ED has provided 2000mg keppra prior to admission 2. Post-traumatic subdural hematoma, with unknown loss of consciousness status, initial encounter: - Question if CT findings represent true hematoma. Will repeat CT head without contrast in 6 hours for reassessment - Hold NSAID and chemical DVT prophylaxis 3. Fall, initial encounter: - Patient mentions dizziness but may be related to alcohol consumtion - Check echocardiogram - Check orthostatics 4. Weakness of both lower extremities: - Patient mentions she has a neurology appointment in [facility]. We do not have in-house nuerology available for 04/06 so she will need to keep this appointment - Will consult PT/OT for assessment PDMP PDMP Reviewed: Not Reviewed Attestations Medical Necessity Statement*: Patient is anticipated to need less than two midnights for inpatient management of recurrent falls and evaluation of possible subdural hematoma Coding Level of Care Code 40936 Diagnoses Seizure disorder G40.909 Post-traumatic subdural hematoma, with unknown loss of consciousness status, initial encounter S06.5XAA Encounter type: initial encounter Loss of consciousness presence/duration: unknown LOC status Fall, initial encounter W19.XXXA Encounter type: initial encounter Weakness of both lower extremities R29.898 Laterality: bilateral
[2025-04-05 19:28] LABS: Reflex Lactate Order REFLEX LACTIC ORDERD
[2025-04-05 19:58] VITALS: PULSE 54; O2SAT 96
[2025-04-05 20:04] LABS: Glucose Urine UA Negative (Normal); Nitrate Urine Negative (Negative); Specific Gravity, Urine 1.016 (1.005-1.030)
[2025-04-05 20:10] LABS: Carbamazepine Tegretol 13.0 ug/mL (4.0-12.0)
[2025-04-05 20:13] LABS: PCP Screen Urine Negative (Negative)
[2025-04-05 20:32] VITALS: BP 116/76; PULSE 59; O2SAT 99
[2025-04-05 20:40] VITALS: BP 112/70; PULSE 53; RESP 18; TEMP 36.3; O2SAT 95
[2025-04-05 20:48] LABS: Lactic Acid level (Lactate) 1.0 mmol/L (0.5-2.2)
[2025-04-05 20:56] VITALS: BMI 30.2
[2025-04-05 21:10] LABS: Hepatitis B Surface Antigen Non-Reactive (Nonreactive)
[2025-04-05 21:13] LABS: HIV 1 & 2 Antigen Non-Reactive (Non-Reactiv)
--- NOTE | 2025-04-05 23:00 | CTR_ITS ---
PROCEDURE INFORMATION: Exam: CT Head Without Contrast Exam date and time: 04/05/2025 11:18 PM Age: 59 years old Clinical indication: Other: F/u questionable hemorrhage; F/u for questionable hemorrhage along anterior interhemispheric fissure. ; Additional info: ? Subdural hemorrhage follow up TECHNIQUE: Imaging protocol: Computed tomography of the head without contrast. Radiation optimization: All CT scans at this facility use at least one of these dose optimization techniques: automated exposure control; mA and/or kV adjustment per patient size (includes targeted exams where dose is matched to clinical indication); or iterative reconstruction. COMPARISON: CT head wo con* [id number] 04/05/2025 5:32 PM RADIATION DOSE METRICS: Total DLP (mGy-cm): 1036.04 FINDINGS: Brain: No hemorrhage, no periventricular white matter disease. No mass effect. Basal cisterns are patent. Cerebral ventricles: No ventriculomegaly. Paranasal sinuses: No significant air-fluid levels noted in the visualized sinuses. Mastoid air cells: Mastoid air cells are aerated with no effusions. Bones: No acute osseous abnormality. Soft tissues: There is a scalp hematoma noted in the occipital region. CT/CT head wo con* [id number] IMPRESSION: No acute intracranial abnormality.
[2025-04-06] VITALS (10 sets, daily range): BP systolic 105–148; BP diastolic 57–76; PULSE 53–75; RESP 16–18; TEMP 36.4–36.9; O2SAT 61–97; BMI 28.3
[2025-04-06] MEDS: ATORVASTATIN 20 MG TABLET PO (04:25)
[2025-04-06 05:08] LABS: Hematocrit 35.5 % (36-47); Hemoglobin 11.70 g/dL (11.27-16.99); Mean Corpuscular HGB Conc 33.0 g/dL (30-55); Mean Corpuscular Hemoglobin 30.2 pg (27-33); Mean Corpuscular Volume 91.7 fl (85-98); Nucleated Red Blood Cells % 0 %; Platelet Count 345 10^3/cmm (157-399); Red Blood Count 3.87 10^6/uL (3.85-5.65); White Blood Count 9.06 10^3/uL (3.29-11.43)
[2025-04-06 05:29] LABS: Anion Gap 12.1 (5-19); Blood Urea Nitrogen 11 mg/dL (6-20); Calcium 8.6 mg/dL (8.5-10.5); Carbon Dioxide 25 mmol/L (22-29); Chloride 105 mmol/L (98-107); Glucose 84 mg/dL (65-115); Osmolality Calculated 285 mOsm/kg (285-295); Potassium 4.1 mmol/L (3.5-5.1); Sodium 138 mmol/L (136-145)
--- NOTE | 2025-04-06 08:14 | PC.PHAR ---
Pt states she has not received her nebulizing machine due to insurance so she has not started those treatments yet. Took medications yesterday am at 6am and noon.
--- NOTE | 2025-04-06 08:47 | P.DS_ITS ---
Discharge Providers Date of Admission: 04/05/25 20:10 Date of Discharge: April 06, 2025 Attending Provider at Admission: Addison Cavanaugh MD Attending Provider at Discharge: Ching Vizcarra NP Primary Care Provider: Rick Edwards MD Diagnoses at Discharge Discharge Diagnosis 1. Seizure disorder: 2. Post-traumatic subdural hematoma, with unknown loss of consciousness status, initial encounter: 3. Fall, initial encounter: 4. Weakness of both lower extremities: Reason for Visit Reason for Visit: seizure Brief History: Admission: Neha Spear is a 59 year old female with history significant for seizure disorder, COPD, hypertension, and lower extremity weakness causing frequent falls for the past 6 months, who presents after sustaining a fall and subsequent seizures. Patient mentions she was in her kitchen when she got dizzy, stepped backwards and tripped on her own feet. Her next memory is that of being in the hospital. Her roommates were present for the fall and patient was told she had seizure activity around that time. It is not entirely clear if the patient had a seizure before or after her fall. Of note, the patient did have some beer this evening but did not finish her beverage and feels the dizziness may be related. For the past 6 months she has been having frequent falls and is set to see neurology for her legs not working. She has been using a walker to aid in ambulation but it was not near by at the time. She has been compliant with her prescribed medications and her keppra has recently been increased from 500mg to 1000mg BID. Last seizure was a few days ago per patient. She says she has fallen almost daily in the past 6 months. She otherwise denies recent illness, fevers, or chills. No other changes to her medication regimen. Hospital Course Hospital Course 1. Seizure disorder: - Unclear if truly had seizure but given traumatic injury and recent reports of seizure, will admit for closer monitoring - Continue her home AEDs, increase keppra to 1000mg BID - ED has provided 2000mg keppra prior to admission 2. Post-traumatic subdural hematoma, with unknown loss of consciousness status, initial encounter: - Question if CT findings represent true hematoma. Will repeat CT head without contrast in 6 hours for reassessment - Hold NSAID and chemical DVT prophylaxis - Repeat CT negative for acute processes 3. Fall, initial encounter: - Patient mentions dizziness but may be related to alcohol consumtion - ECHO - Orthostatics normal 4. Weakness of both lower extremities with neuropathy: - Patient mentions she has a neurology appointment in [facility]. We do not have in-house nuerology available for 04/06 so she will need to keep this appointment - PT/OT evaluation, referral for home health military exchange wireless manager seizure, rapid called, recovered within minutes of having seizure, no medications given. Patient had no more seizure activity, states that she has outpatient follow-up with neurologist in April. EEG and neurology unavailable at this facility this week, advised patient to keep her follow-up outpatient appointment with neurologist next month and advised to repeat EEG at that time. Patient just had her Keppra increased yesterday, will remain on this dosing at discharge. Patient has had seizure disorder since she was 13 years old. Leg weakness and decline in well ability is not new, patient walks with a walker at her baseline and is at her baseline at time of discharge. Did refer patient for home health of choice, greatly appreciate case management in coordination of discharge. Patient is advised to follow-up with her primary care provider in 1 to 3 days of discharge and neurology at the next available appointment. All questions and concerns addressed with the patient prior to discharge. Physical Exam Const: COMMON NORMALS: no acute distress and patient oriented x3 HENMT: HEAD & SCALP: scalp tenderness (at the occiput) Resp: COMMON NORMALS: normal respiratory effort and clear to auscultation bilaterally AUSCULTATION: clear to auscultation bilaterally Cardio: COMMON NORMALS: regular rate, regular rhythm, S1 normal heart sound present, S2 normal heart sound present, No gallops present (Cardio), No clicks present (Cardio), No murmurs present (Cardio) and No rub (Cardio) RATE: regular rate RHYTHM: regular rhythm HEART SOUNDS: S1 normal heart sound present and S2 normal heart sound present GI: COMMON NORMALS: Normal to inspection, nondistended, normoactive bowel sounds present, Soft to palpation and non-tender PALPATION: Yes Soft to palpation Neuro: COMMON NORMALS: patient oriented x3 OTHER: 1/5 lower extremity strength. Diminished sensation noted. Skin: COMMON NORMALS: no rashes or lesions noted GENERAL SKIN EXAM: no rashes or lesions noted Discharge Data Studies Completed and Pending Completed Studies During Hospitalization Category Date Time Status CT cervical spin wo con* [id number] Urgent Cat Scan 04/05/25 17:[address] head wo con* [id number] Routine Cat Scan 04/05/25 23:[address] head wo con* [id number] Urgent Cat Scan 04/05/25 17:03 Completed XR chest 1V portable [id number] Urgent Exams 04/05/25 17:03 Completed Pending at discharge Category Date Time Status KEPPRA [Levetiracetam Immunoassy] Routine Lab 04/05/25 19:45 Received CV. echo complete* [id number] Routine Ultrasound 04/06/25 20:48 Ordered Radiology Impressions Chest X-Ray 04/05/25 17:03 IMPRESSION: 1. Bibasilar atelectasis. 2. Possible atelectasis versus early infectious process in the left lower lobe. Cervical Spine CT 04/05/25 17:08 IMPRESSION: No acute cervical spine fracture. Head CT 04/05/25 23:00 IMPRESSION: No acute intracranial abnormality. Laboratory Results WBC 9.06 10^3/uL (3.29-11.43) 04/06/25 04:26 RBC 3.87 10^6/uL (3.85-5.65) 04/06/25 04:26 Hgb 11.70 g/dL (11.27-16.99) 04/06/25 04:26 Hct 35.5 % (36-47) L 04/06/25 04:26 MCV 91.7 fl (85-98) 04/06/25 04:26 MCH 30.2 pg (27-33) 04/06/25 04:26 MCHC 33.0 g/dL (30-55) 04/06/25 04:26 RDW 13.5 % (12.1-15.1) 04/06/25 04:26 Plt Count 345 10^3/cmm (157-399) 04/06/25 04:26 MPV 9.1 fL (7.4-10.4) 04/06/25 04:26 Neut % (Auto) 50.9 % 04/06/25 04:26 Lymph % (Auto) 36.6 % 04/06/25 04:26 [place] % (Auto) 7.8 % 04/06/25 04:26 Eos % (Auto) 3.8 % 04/06/25 04:26 Baso % (Auto) 0.7 % 04/06/25 04:26 Neut # (Auto) 4.61 10^3/uL (1.8-7.7) 04/06/25 04:26 Lymph # (Auto) 3.3 10^3/uL (0.8-4.8) 04/06/25 04:26 [place] # (Auto) 0.7 10^3/uL (0.2-0.9) 04/06/25 04: Eos # (Auto) 0.3 10^3/uL (0.0-0.8) 04/06/25 04: Baso # (Auto) 0.1 10^3/uL (0.0-0.1) 04/06/25 04: Nucleated RBC % (auto) 0 % 04/06/25 04: Nucleated RBCs # 0.0 /100WBC 04/06/25 04:26 Specimen Type Arterial 04/05/25 17:42 Sample Site Brachial, left 04/05/25 17:42 ABG pH 7.38 (7.35-7.45) 04/05/25 17:42 ABG pCO2 40.0 mmHg (35-45) 04/05/25 17:42 ABG pO2 79.6 mmHg (80.0-100.0) L 04/05/25 17:42 ABG PO2/FiO2 Ratio 379 04/05/25 17:42 ABG HCO3 23.5 mmol/L (22-26) 04/05/25 17:42 ABG O2 Saturation 96.4 04/05/25 17:42 ABG Base Excess -1.6 mmol/L (-2.0-2.0) 04/05/25 17:42 Dl Test N/a 04/05/25 17:42 A-a O2 Gradient 2.7 mmHg (5-10) L 04/05/25 17:42 Hematocrit 41.2 % (37-47) 04/05/25 17:42 Hgb O2 Saturation 92.5 % (95-100) L 04/05/25 17:42 Carboxyhemoglobin 3.1 %THgb (0.4-20.1) 04/05/25 17:42 Methemoglobin 1.1 % (0.4-1.5) 04/05/25 17:42 Total Hemoglobin 13.5 g/dL (12-16) 04/05/25 17:42 Sodium 138.0 mmol/L (131-143) 04/05/25 17:42 Potassium 3.6 mmol/L (3.5-5.0) 04/05/25 17:42 Glucose 84.0 mg/dL (70-115) 04/05/25 17:42 Ionized Calcium 1.1 mmol/L (1.1-1.4) 04/05/25 17:42 O2 Delivery Device Room air 04/05/25 17:42 FiO2 21.0 % 04/05/25 17:42 Wax Engraver ID Amh 04/05/25 17:42 Sodium 138 mmol/L (136-145) 04/06/25 04:26 Potassium 4.1 mmol/L (3.5-5.1) 04/06/25 04:26 Chloride 105 mmol/L (98-107) 04/06/25 04:26 Carbon Dioxide 25 mmol/L (22-29) 04/06/25 04:26 Anion Gap 12.1 (5-19) 04/06/25 04:26 BUN 11 mg/dL (6-20) 04/06/25 04:26 Creatinine 0.6 mg/dL (0.5-0.9) 04/06/25 04:26 GFR Calculation 103.0 mL/min (90-130) 04/06/25 04:26 Glucose 84 mg/dL (65-115) 04/06/25 04:26 Calculated Osmolality 285 mOsm/kg (285-295) 04/06/25 04:26 Lactic Acid 2.6 mmol/L (0.5-2.2) H 04/05/25 17:36 Lactic Acid (Sepsis) 1.0 mmol/L (0.5-2.2) 04/05/25 20:23 Calcium 8.6 mg/dL (8.5-10.5) 04/06/25 04:26 Total Bilirubin 0.2 mg/dL (0.15-1.2) 04/05/25 17:36 AST 19 U/L (0-32) 04/05/25 17:36 ALT 19 U/L (0-33) 04/05/25 17:36 Alkaline Phosphatase 124 U/L (35-105) H 04/05/25 17:36 Total Protein 6.7 g/dL (6.6-8.7) 04/05/25 17:36 Albumin 4.0 g/dL (3.5-5.2) 04/05/25 17:36 Globulin 2.7 g/dL (1.3-4.6) 04/05/25 17:36 Urine Color Cancelled 04/05/25 19:53 Urine Color Yellow (Yellow) 04/05/25 19:53 Urine Appearance Cancelled 04/05/25 19:53 Urine Appearance Clear (CLEAR) 04/05/25 19:53 Urine pH 6.5 (5-7) 04/05/25 19:53 Urine pH Cancelled 04/05/25 19:53 Ur Specific [place] 1.016 (1.005-1.030) 04/05/25 19:53 Ur Specific [place] Cancelled 04/05/25 19:53 Urine Protein Cancelled 04/05/25 19:53 Urine Protein Negative (Negative) 04/05/25 19:53 Urine Glucose (UA) Cancelled 04/05/25 19:53 Urine Glucose (UA) Negative (Normal) 04/05/25 19:53 Urine Ketones Cancelled 04/05/25 19:53 Urine Ketones Negative (Negative) 04/05/25 19:53 Urine Blood Cancelled 04/05/25 19:53 Urine Blood Negative (Negative) 04/05/25 19:53 Urine Nitrate Cancelled 04/05/25 19:53 Urine Nitrate Negative (Negative) 04/05/25 19:53 Urine Bilirubin Cancelled 04/05/25 19:53 Urine Bilirubin Negative (Negative) 04/05/25 19:53 Prot Sulfosalicylic Acd Cancelled 04/05/25 19:53 Urine Urobilinogen 0.2 mg/dL (Negative) 04/05/25 19:53 Urine Urobilinogen Cancelled 04/05/25 19:53 Ur Leukocyte Esterase Cancelled 04/05/25 19:53 Ur Leukocyte Esterase Negative (Negative) 04/05/25 19:53 Urine RBC 0-2 /hpf (0-2) 04/05/25 19:53 Urine RBC Cancelled 04/05/25 19:53 Urine WBC 0-5 /hpf (0-5) 04/05/25 19:53 Urine WBC Cancelled 04/05/25 19:53 Ur Squamous Epith Cells 0-5 /hpf (0-5) 04/05/25 19:53 Ur Squamous Epith Cells Cancelled 04/05/25 19:53 Ur Transition Epith Cell Cancelled 04/05/25 19:53 Ur Renal Epithelial Cell Cancelled 04/05/25 19:53 Calcium Oxalate Crystal Cancelled 04/05/25 19:53 Uric Acid Crystals Cancelled 04/05/25 19:53 Triple Phos Crystals Cancelled 04/05/25 19:53 Other Crystals Cancelled 04/05/25 19:53 Amorphous Sediment Cancelled 04/05/25 19:53 Amorphous Sediment Not Reportable 04/05/25 19:53 Urine Bacteria Cancelled 04/05/25 19:53 Urine Bacteria None seen /hpf (NONE) 04/05/25 19:53 Hyaline Casts 1.21 /lpf 04/05/25 19:53 Hyaline Casts Cancelled 04/05/25 19:53 Fine Granular Casts Cancelled 04/05/25 19:53 Coarse Granular Casts Cancelled 04/05/25 19:53 RBC Casts Cancelled 04/05/25 19:53 Other Casts Cancelled 04/05/25 19:53 Urine Mucus Cancelled 04/05/25 19:53 Urine Trichomonas Cancelled 04/05/25 19:53 Urine Yeast Cancelled 04/05/25 19:53 Urine Sperm Cancelled 04/05/25 19:53 Ur Oval Fat Bodies Cancelled 04/05/25 19:53 Urine Opiates Screen Negative ng/mL (Negative) 04/05/25 19:53 Ur Barbiturates Screen Negative ng/mL (Negative) 04/05/25 19:53 Carbamazepine 13.0 ug/mL (4.0-12.0) H 04/05/25 19:45 Ur Phencyclidine Scrn Negative ng/mL (Negative) 04/05/25 19:53 Ur Amphetamines Screen Negative ng/mL (Negative) 04/05/25 19:53 U Benzodiazepines Scrn Positive ng/mL (Negative) H 04/05/25 19:53 Urine Cocaine Screen Negative ng/mL (Negative) 04/05/25 19:53 U Marijuana (THC) Screen Positive ng/mL (Negative) H 04/05/25 19:53 Ethyl Alcohol 26 mg/dL (0-10) H 04/05/25 17:36 Hep Bs Antigen Non-reactive (Nonreactive) 04/05/25 17:36 Hep Bs Antibody < 3.5 (11.5-1000) L 04/05/25 17:36 Hepatitis C Antibody Non-reactive (Nonreactive) 04/05/25 17:36 HIV 1&2 Ab & HIV 1 Ag Non-reactive (Non-Reactiv) 04/05/25 17:36 HIV 1&2 Antibody Non-reactive (Non-Reactiv) 04/05/25 17:36 Vitals Last Vital Signs Temp 97.9 F 04/06/25 08:00 Pulse 55 L 04/06/25 08:16 Resp 16 04/06/25 08:16 BP 114/75 04/06/25 08:00 Pulse Ox 95 04/06/25 08:16 O2 Del Method Room Air 04/06/25 08:16 Discharge Plan Discharge Patient Disposition: Home Condition: Stable Prescriptions: New tramadol 50 mg Tablet 50 mg PO Q6H PRN (Reason: Moderate Pain) 2 Days Qty: 10 0RF Continued atorvastatin [Lipitor] 20 mg tablet 20 mg PO BEDTIME meloxicam 15 mg tablet 15 mg PO DAILY gabapentin 400 mg capsule 800 mg PO TID spironolactone 25 mg tablet 25 mg PO DAILY carbamazepine [Epitol] 200 mg tablet 200 mg PO TID citalopram 20 mg tablet 20 mg PO BEDTIME furosemide [Lasix] 20 mg tablet 20 mg PO DAILY PRN (Reason: Edema) albuterol sulfate [Ventolin HFA] 90 mcg/actuation HFA aerosol inhaler 2 puff inhalation Q6H PRN (Reason: Shortness Of Breath Or Wheezing) albuterol sulfate 0.63 mg/3 mL solution for nebulization 0.63 mg inhalation QID PRN (Reason: shortness of breath or wheezing) Qty: 90 6RF (DME) nebulizers Misc See Rx Instructions .MEDSUPPLY Qty: 1 0RF Rx Instructions: As directed budesonide-formoterol 160-4.5 mcg/actuation HFA aerosol inhaler 2 puff inhalation BID Qty: 10.2 6RF tiotropium bromide 2.5 mcg/actuation mist 2 inh inhalation QAM Qty: 4 6RF famotidine 20 mg Tablet 20 mg PO BID levothyroxine 112 mcg tablet 112 mcg PO QAM levetiracetam 1,000 mg tablet 1,000 mg PO BID Referrals: Rick Edwards MD [Primary Care Provider, [facility]] - 04/13/25 1:30 pm Discharge Diet: Usual diet Discharge Activity: Use walker/crutches as instructed Patient Instructions: Recurrent Seizures in Adults (GEN), Opioid Safety, Pain Management, Patient Portal & Nnamdi Instructions Discharge Attestations Time Spent in Discharge Care*: greater than 30 min Quality Metrics Clinical Quality Measures [ No reported AMI, CVA or VTE this stay] Coding Level of Care Code 36138 Diagnoses Seizure disorder G40.909 Post-traumatic subdural hematoma, with unknown loss of consciousness status, initial encounter S06.5XAA Encounter type: initial encounter Loss of consciousness presence/duration: unknown LOC status Fall, initial encounter W19.XXXA Encounter type: initial encounter Weakness of both lower extremities R29.898 Laterality: bilateral
--- NOTE | 2025-04-06 09:54 | PC.CHAP ---
Pastoral Care Encounter/Spiritual Assessment Type of Contact [] Declined neckties painter visit [] Patient/Family/Request visit [] Outpatient visit [] Follow-up visit [] Physician referral [] Code/Alert [x] Routine visit [] Staff referral [] Actively dying [] Patient sleeping [] Family support [] [x] Out of room [] Palliative care [] [] Receiving care in room [] Pre-surgical visit [] Trauma [] Long length of stay [] ICU visit [] Other: Relational/Emotional Strength [] Patient feels connected with others/family/visitors/staff [] Distress [] Loneliness/isolation [] Abandonment Spirituality of Patient [] Person of Harika [] Attends Restorationist of their Harika [] Believes in Prayer [] Reads Bible or Congregational materials [] There are Spiritual issues to be addressed Web Services Developer Interventions [] Prayer [] Active listening [] Non-anxious presence [] Spiritual/emotional support [] Crisis/trauma care [] Spiritual counseling [] Bereavement support [] Provided bereavement packet [] Provided Bible/devotional materials [] Provided toy/stuffed animal, coloring book to patient or family member [] Provided Communion [] Anointing/[place] [] Salvation [] Completed spiritual assessment [] Other: Impact on Illness or Injury [] Angry [] Fearful [] Anxious [] Often cries [] Exhaustion [] Unable to work [] Unable to attend confucianist [] Unable to walk/stand [] Unable to read [] Unable to drive [] Unable to eat/drink [] Unable to sleep [] Unable to be with family [] Patient intubated [] Other: Summary Time spent with patient
--- NOTE | 2025-04-06 10:51 | ECG_ITS ---
[facility] Date: 2025-04-06 Pat Name: Neha Spear Department: Room: 250 Gender: Female Airline Security Representative: : 1965 Requested By: Viral Wright Order Number: [id number] Reading MD: Julisa Paez M.D. Measurements Intervals [place] Rate: 58 P: 56 OR: 167 QRS: 19 QRSD: 98 T: 31 QT: 434 QTc: 430 Interpretive Statements SINUS BRADYCARDIA INCOMPLETE RIGHT BUNDLE BRANCH BLOCK [90+ ms QRS DURATION, TERMINAL R IN V1/V2, 40+ ms S IN I/aVL/V4/V5/V6] No previous ECG available for comparison Electronically Signed On 04-06-2025 17:49:29 SWIMMING COACH by Julisa Paez M.D. [email or web address]
--- NOTE | 2025-04-06 11:07 | PC.SOCIAL ---
Patients insurance is [facility] wont cover HH.
[2025-04-06 11:23] LABS: Magnesium 2.1 mg/dL (1.7-2.3)
[2025-04-06 11:39] LABS: Lactate (Lactic Acid level) 2.6 mmol/L (0.5-2.2)
--- NOTE | 2025-04-06 13:40 | PC.NURSE ---
Addendum entered by Eva Renteria LPN 04/06/25 14:05: This nurse went to administer PO Tramadol. Pt was resting comfortably in bed. Pt in deep sleep and hard to awaken. Once awake and sat up in bed, pt rated pain 9 out of 10 and took PO PRN Tramadol. Original Note: Pt and patients son requested something more than tylenol for pain stating the pain is causing the seizures Dr. Flower notified and new order for Tramadol was placed.
--- NOTE | 2025-04-06 20:48 | USCV_ITS ---
Neha Spear Age: 59 Gender: F : 1965 Exam Date: 04/06/2025 09:21 Ordering Phys: Addison Cavanaugh MD Technologist: MARCE Exam Location: [facility] [place], [place] Indication: Dizziness BP: 112 / 57 HR: 60 Rhythm: Sinus Technical Quality: Adequate MEASUREMENTS (Male / Female) Normal Values 2D ECHO LV Diastolic Diameter PLAX 5.7 cm 4.2 - 5.9 / 3.9 - 5.3 cm IVS Diastolic Thickness 0.9 cm 0.6 - 1.0 / 0.6 - 0.9 cm IVS Systolic Thickness 1.0 cm LVPW Diastolic Thickness 0.9 cm 0.6 - 1.0 / 0.6 - 0.9 cm LVPW Systolic Thickness 1.0 cm LVOT Diameter 2.0 cm LV Ejection Fraction 2D Teich 31.2 % LV Ejection Fraction MOD 4C 67.3 % LV Ejection Fraction MOD 2C 68.3 % LV Ejection Fraction 2C AL 67.0 % LA Diameter 3.4 cm RA Systolic Volume 4C AL 40.3 ml RA Systolic Volume 4C MOD 38.9 ml LA Sys Volume AL 45.0 cm cubed LA Sys Volume Index AL 23.7 cm cubed/m squared Aorta at Sinotubular Diameter 2.4 cm M-MODE LA Ao Ratio MM 1.4 AV Cusp Separation MM 1.5 cm DOPPLER AV Peak Velocity 210.0 cm/s LVOT Peak Velocity 131.0 cm/s AV Area Cont Eq vti 2.4 cm squared AV Area Cont Eq pk 2.0 cm squared MV Peak Velocity 107.0 cm/s MV Area PHT 5.1 cm squared Mitral E to A Ratio 1.0 TR Peak Velocity 297.0 cm/s TR Peak Gradient 35.3 mmHg TV Peak E Velocity 89.0 cm/s PV Peak Velocity 181.0 cm/s FINDINGS Left Ventricle Normal left ventricular size, systolic function and wall thickness, with no regional wall motion abnormalities. Normal left ventricular size and systolic function, EF 65%. Right Ventricle Normal right ventricular size and systolic function. Right Atrium Normal right atrial size. Left Atrium Normal left atrial size. IA Septum Normal interatrial septum. Mitral Valve Structurally normal mitral valve. Trace mitral valve regurgitation. Aortic Valve Structurally normal trileaflet aortic valve. No aortic valve stenosis. Tricuspid Valve Structurally normal tricuspid valve. Trace tricuspid valve regurgitation. Mildly elevated pulmonary pressures, estimated PAP 35 to 40 mmHg. Pulmonic Valve Pulmonic valve not well visualized. Trace pulmonary valve regurgitation. Pericardium No pericardial effusion. Aorta Normal size aortic root and proximal ascending aorta. IVC Inferior vena cava not visualized. CONCLUSIONS Normal LV systolic function. Normal wall motion and thickening. Estimated LVEF normal 65%. No significant valvular abnormality noted. Normal RV size and RV systolic function. Mildly elevated pulmonary pressure, 35 to 40 mmHg April Spivey MD (Electronically Signed) Final Date: 06 April 2025 13:51 S
[2025-04-07 06:19] LABS: Levetiracetam Immunoassy >100.0 mcg/mL (10.0-40.0)
== END 2025-04-06 17:37 | disposition home or self-care (01) ==
LOC: ER 19:21 → MEDSURG 20:21
PROVIDERS: Emergency Medicine; Family Medicine; Internal Medicine; Admitting Provider Family Medicine; Emergency Provider Physician Assistant; PCP Family Medicine; Visit Provider Registered Nurse
DX: S06.5XAA Traumatic subdural hemorrhage with loss of consciousness status unknown, initial encounter (principal); W19.XXXA Unspecified fall, initial encounter; G40.909 Epilepsy, unspecified, not intractable, without status epilepticus; R29.898 Other symptoms and signs involving the musculoskeletal system; E03.9 Hypothyroidism, unspecified; I10 Essential (primary) hypertension; E78.5 Hyperlipidemia, unspecified; J44.9 Chronic obstructive pulmonary disease, unspecified; I77.6 Arteritis, unspecified; F17.290 Nicotine dependence, other tobacco product, uncomplicated
CPT/HCPCS: 36415; 36416; 36600; 70450; 71045; 72125; 80048; 80051; 80053; 80156; 80177; 80306; 80307; 81001; 82330; 82805; 82962; 83605; 83735; 85025; 86706; 86803; 87340; 87806; 93005; 93306; 94640; 96365; 96375; 97161; 97166; 99285; G0378; J1953; J2060; J7030; J7040; J7626; J9999

== ENCOUNTER 2025-04-17 10:28 | Outpatient (CLI) | payer MEDICAID, SELFPAY ==
--- NOTE | 2025-04-17 10:38 | MR_ITS ---
WS: [id number] MRI LUMBAR SPINE NONCONTRAST HISTORY: FREQUENT FALLS/CHRONIC LOW BACK PAIN/DDD COMPARISON: None available. TECHNIQUE: Sagittal and axial multisequence imaging is submitted. Normal lumbar alignment with no compression fractures or marrow edema. Disc spaces and vertebral body heights are well-preserved. Conus terminates normally at L1-2 disc level. L1-L2: Normal. L2-L3: Diffuse disc bulging with ligamentum flavum and facet joint arthritis. Very mild encroachment upon the subarticular recesses by disc disease. Shallow RIGHT foraminal disc protrusion without stenosis. L3-L4: Diffuse disc bulging encroaching upon the subarticular recesses. Mild disc contact on the traversing L4 nerve roots. Mild ligamentum flavum and facet arthritis. Mild bilateral foraminal stenosis. There is slight disc contact on the exiting RIGHT L3 nerve root. L4-L5: Mild annular disc bulge with a broad-based central disc protrusion contacting the traversing L5 nerve roots. Moderate ligamentum flavum and facet arthritis. Mild central and bilateral subarticular recess and mild foraminal stenosis. L5-S1: Mild disc bulging. Moderate-sized RIGHT foraminal disc protrusion contacts the RIGHT exiting L5 nerve root with moderate RIGHT foraminal stenosis. Smaller LEFT foraminal disc protrusion with lesser contact on the exiting LEFT L5 nerve root. No central stenosis. Moderate facet arthritis with fluid in the facet joints. 7 mm cyst lower pole LEFT kidney. MR/MR lumbar spine wo con* [id number] IMPRESSION: 1. No high-grade central or foraminal stenosis. 2. Mild central, subarticular recess and foraminal stenosis at L4-5. There is a broad-based central disc protrusion which does contact the traversing L5 nerv e roots. 3. Moderate size RIGHT foraminal disc protrusion at L5-S1. Smaller disc protru angie in the LEFT foramen. There is disc contacting the exiting L5 nerve roots, RIGHT greater than LEFT. Moderate RIGHT foraminal stenosis. 4. Mild disc encroachment upon the subarticular recesses at L3-4. Mild disc co ntact on the traversing L4 nerve roots. There is minimal disc contact on the ex iting RIGHT L3 nerve root.
== END 2025-04-17 10:29 | disposition home or self-care (01) ==
LOC: RAD 10:28
PROVIDERS: PCP Family Medicine; Visit Provider Family Medicine
DX: R29.6 Repeated falls (principal); M53.80 Other specified dorsopathies, site unspecified; R20.2 Paresthesia of skin; M51.26 Other intervertebral disc displacement, lumbar region; M47.896 Other spondylosis, lumbar region; M51.370 Other intervertebral disc degeneration, lumbosacral region with discogenic back pain only; M48.07 Spinal stenosis, lumbosacral region
CPT/HCPCS: 72148

== ENCOUNTER → 2025-04-23 13:41 | Outpatient (BNVA) | payer MEDICAID, SELFPAY | PROVIDERS: PCP Family Medicine; Visit Provider Orthopaedic Surgery | DX: Z01.818 Encounter for other preprocedural examination (principal); M48.062 Spinal stenosis, lumbar region with neurogenic claudication; R29.898 Other symptoms and signs involving the musculoskeletal system | CPT/HCPCS: 36415; 72110; 81001; 85025 ==

== ENCOUNTER 2025-04-24 15:05 | Outpatient (CLI) | payer MEDICAID, SELFPAY ==
--- NOTE | 2025-04-24 15:13 | XR_ITS ---
WS: [id number] DEXA (DUAL ENERGY X-RAY ABSORPTIOMETRY) Bone mineral density was performed using a [employer] machine. HISTORY: PERSONAL HX OF (HEALED) TRAMATIC FRACTURE COMPARISON: None available. Lumbar spine BMD (L1-L4): 1.070 g/cm2 T score: -0.9 Z score: -0.2 Total hip BMD: Left: 0.797 g/cm2. T score: -1.7 Z score: -1.1 Right: 0.793 g/cm2. T score: -1.7 Z score: -1.2 10 year probability of a major osteoporotic fracture is 56%. XR/XR DEXA axial skeleton* [id number] IMPRESSION: OSTEOPENIA based upon the WHO classification for females.
== END 2025-04-24 15:06 | disposition home or self-care (01) ==
LOC: RAD 15:08
PROVIDERS: PCP Family Medicine; Visit Provider Family Medicine
DX: Z13.820 Encounter for screening for osteoporosis (principal); M85.88 Other specified disorders of bone density and structure, other site
CPT/HCPCS: 77080

== ENCOUNTER 2025-05-05 07:10 | Outpatient (CLI) | payer MEDICAID, SELFPAY | END 2025-05-05 07:11 | disposition home or self-care (01) | LOC: RT 07:13 | PROVIDERS: PCP Family Medicine; Visit Provider Internal Medicine | DX: J44.9 Chronic obstructive pulmonary disease, unspecified (principal) | CPT/HCPCS: 94010; 94726; 94729 ==

== ENCOUNTER 2025-05-05 07:51 | Emergency (ER) | payer MEDICAID, SELFPAY ==
[2025-05-05 07:54] VITALS: BP 126/66; PULSE 68; RESP 18; TEMP 37; O2SAT 98
--- NOTE | 2025-05-05 07:54 | CT_ITS ---
WS: [id number] CT HEAD NONCONTRAST HISTORY: syncope TECHNIQUE: Contiguous axial imaging performed through the brain. Bone and soft tissue windows. Sagittal and coronal reformats reviewed. All CT scans at [facility] use at least one of these dose optimization techniques: automated exposure control; mA and/or kV adjustment per patient size (includes targeted exams where dose is matched to clinical indication); or iterative reconstruction. DLP: 1106.26 mGy.cm COMPARISON: 04/05/2025 No acute intracranial hemorrhage, midline shift or mass effect. Very minimal atrophy. Area of decreased attenuation noted along the RIGHT superior occipital lobe is stable since 04/05/2025. May be from a remote infarct. Lipoma along the anterior interhemispheric falx. Ventricles: Normal size with no hydrocephalus. No inferior displacement of the cerebellar tonsils. Paranasal sinuses: As visualized are clear. Mastoid air cells: Well pneumatized. Calvarium and scalp: Skull is intact with no soft tissue edema or swelling. CT/CT head wo con* [id number] IMPRESSION: 1. No acute intracranial hemorrhage or edema. 2. Area of decreased attenuation in the superior RIGHT occipital lobe may be f rom a prior infarct. No change since 04/05/2025. Recommend nonurgent MRI brain with and without contrast.
--- NOTE | 2025-05-05 07:55 | XR_ITS ---
WS: [id number] Portable AP upright chest, 05/05/2025 Clinical Data: Weakness Comparison: Portable chest, 04/05/2025 Findings: No nodules, masses or effusions are seen. The heart is normal. The pulmonary vascularity is not increased. No pneumonia or pneumothorax is seen. The aortic arch and descending thoracic aorta are minimally tortuous. XR/XR chest 1V portable [id number] Impression: Atherosclerosis.
--- NOTE | 2025-05-05 07:55 | ECG_ITS ---
[employer] Test Date: 2025-05-05 Pat Name: Neha Spear Department: Room: Gender: Female Security Associate: : 1965 Requested By: Whit Paulino Order Number: [id number] Reading MD: ARCENIO ISABEL Measurements Intervals [place] Rate: 54 P: 56 [place]: 179 QRS: 31 QRSD: 97 T: 35 QT: 460 QTc: 439 Interpretive Statements SINUS BRADYCARDIA POSSIBLE RIGHT VENTRICULAR CONDUCTION DELAY [RSR (QR) IN V1/V2] NONSPECIFIC T-WAVE ABNORMALITY Compared to ECG 04/06/2025 10:58:08 T-wave abnormality now present Incomplete right bundle-branch block no longer present Electronically Signed On 05-05-2025 11:53:07 HOME SERVICE CONSULTANT by ARCENIO ISABEL [email or web address]
--- OUTSIDE RECORDS SUMMARY | 2025-05-05 07:55 | XMS_ITS | Encounter Summary ---
Author Organization [facility] Address [address] [place] [address] Care Team Providers Care Catering Administrative Assistant Name Role Phone Unavailable Primary Care Provider Unavailabl e Encounter Details Date Type Department Care Team (Late st Contact Info) Description 04/28/2025 External Device Data [facility] ABSTRACTION Provider, Abstract NO ADDRESS ON FILE Social History Tobacco Use Types Packs/Day Years [...] st Contact Info) Description 05/11/2025 8:30 AM JAVA TECHNICAL ARCHITECT Office Visit [facility] Neurology - [place] [address] [address] Geno Núñez MD [address] [facility] [address] [place] [address] 08/05/2025 2:40 PM CDT Hospital Encounter [facility] Endoscopy [address] [place] [address] Hector Almodovar MD [address] [facility] [address] [place] [address] 08/05/2025 2:40 PM CDT - 08/05/2025 3:00 PM CDT Surgery [facility] Endoscopy [address] [place] [phone] Hector Almodovar MD [address] [facility] [address] [place] [phone] COLONOSCOPY Scheduled Procedures Name Priority Associated Diagnoses [...]
--- OUTSIDE RECORDS SUMMARY | 2025-05-05 07:55 | XMS_ITS | Clinical Summary ---
Author Organization [facility] de Address [address] [place] [address] Phone Care Team Providers Care Flotation Tender Name Role Phone Unavailable Primary Care Provider [...] and drink entire liquid 527 Gram 11 Active psyllium (FIBER-CAP) 0.52 gram CapsuleIndication s:Constipation, unspecified constipation type Take 3 Capsules by mouth 3 times daily. Active famotidine (PEPCID) 20 mg tabletIndications :Hiatal hernia with GERD Take 1 Tablet (20 mg) by mouth 2 times daily. 60 Tablet 11 Active Active Problems No known active problems Encounters Date Type Department Care Team Description 04/28/2025 External Device Data [facility] ABSTRACTION Provider, Abstract 04/13/[address] [facility] Gastroenterology[address] [phone] Pretty Meng RN 04/07/2025 External Device Data [facility] ABSTRACTION Provider, Abstract 04/07/2025 External Device Data [facility] ABSTRACTION Provider, Abstract 04/07/2025 External Device Data [facility] ABSTRACTION Provider, Abstract 04/01/[address] [phone] Pretty Meng RN 03/31/2025 3:30 PM STRUCTURAL IRON WORKER Office Visit [address] [phone] Lalitha Rai NP Abnormal results of liver function studies (Primary Dx); Hiatal hernia with GERD; Constipation, unspecified constipation type; History of colon polyps; Bilateral foot-drop from Last 3 Months Social History Tobacco [...] Comments Blood Pressure 96/62 03/31/2025 3:42 PM STRUCTURAL IRON WORKER Pulse 69 03/31/2025 3:42 PM STRUCTURAL IRON WORKER Temperature - - Respiratory Rate - - Oxygen Saturation - - Inhaled Oxygen Concentration - - Weight 74.8 kg (165 lb) 03/31/2025 3:42 PM STRUCTURAL IRON WORKER Height 165.1 cm (5' 5 ) 03/31/2025 3:42 PM STRUCTURAL IRON WORKER Body Mass Index 27.46 03/31/2025 3:42 PM STRUCTURAL IRON WORKER Plan of Treatment Upcoming Encounters Date Type Department Care Team (Late st Contact Info) Description 05/11/2025 8:30 AM STRUCTURAL IRON WORKER Office Visit [facility] Neurology - [place] [address] [facility] [address] [place] [address] Geno Núñez MD [address] [facility] [address] [place] [address] 08/05/2025 2:40 PM CDT Hospital Encounter [facility] Endoscopy [address] [place] [address] Hector Almodovar MD [address] [address] 08/05/2025 2:40 PM CDT - 08/05/2025 3:00 PM CDT Surgery [facility] Endoscopy [address] [place] [address] Hector Almodovar MD [address] [address] COLONOSCOPY Scheduled Procedures Name Priority [...] Date Diagnosed Date Autogenerated Problem 04/01/[address] [address] [employer]ICAID
--- NOTE | 2025-05-05 08:11 | W.ED.SEIZURE ---
HPI - Seizure General: Chief Complaint: Seizure Stated Complaint: rapid respon Time Seen by Provider: 05/05/25 07:53 History of Present Illness: HPI Narrative: 59-year-old female with a history of seizures COPD, depression, hyperlipidemia, hypertension,, edema, and rheumatoid arthritis who presents to the emergency room by rapid response after she became near syncopal after her pulmonary function test here in the hospital. She then had a brief episode of seizure-like activity with no postictal state. She says she thinks she may have just had an episode . States she became lightheaded and sat down on the ground. She then said she thought she was going to have a seizure and laid down. She had some brief seizure-like activity with no loss of bowel or bladder. No tongue injuries. No head injuries. She says she is now feeling fine. No chest pain. No abdominal pain. No vomiting. She has no focal motor deficits. Seizure History: Yes Related Data Home Medications ?Medication ?Instructions ?Recorded ?Confirmed albuterol sulfate 90 mcg/actuation 2 puff inhalation Q6H PRN 03/20/25 04/23/25 aerosol inhaler (Ventolin HFA) Shortness Of Breath Or Wheezing atorvastatin 20 mg tablet (Lipitor) 20 mg PO BEDTIME 03/20/25 04/23/25 carbamazepine 200 mg tablet 200 mg PO TID 03/20/25 04/23/25 (Epitol) citalopram 20 mg tablet 20 mg PO BEDTIME 03/20/25 04/23/25 furosemide 20 mg tablet (Lasix) 20 mg PO DAILY PRN Edema 03/20/25 04/23/25 gabapentin 400 mg capsule 800 mg PO TID 03/20/25 04/23/25 meloxicam 15 mg tablet 15 mg PO DAILY 03/20/25 04/23/25 spironolactone 25 mg tablet 25 mg PO DAILY 03/20/25 04/23/25 famotidine 20 mg tablet 20 mg PO BID 04/05/25 04/23/25 levetiracetam 1,000 mg tablet 1,000 mg PO BID 04/06/25 04/23/25 levothyroxine 112 mcg tablet 112 mcg PO QAM 04/06/25 04/23/25 Previous Rx's ?Medication ?Instructions ?Recorded albuterol sulfate 0.63 mg/3 mL 0.63 mg (3 mL) inhalation QID PRN 03/20/25 solution for nebulization shortness of breath or wheezing #90 mL budesonide-formoterol HFA 160 2 puff inhalation BID #10.2 grams 03/20/25 mcg-4.5 mcg/actuation aerosol inhaler nebulizers #1 ea 03/20/25 tiotropium bromide 2.5 2 inh inhalation QAM #4 grams 03/20/25 mcg/actuation mist for inhalation Allergies Allergy/AdvReac Type Severity Reaction Status Date / Time No Known Allergies Allergy Verified 04/23/25 13:51 Review of Systems Narrative: Constitutional symptoms: Negative except as documented in HPI. Skin symptoms: Negative except as documented in HPI. Eye symptoms: Negative except as documented in HPI. ENMT symptoms: Negative except as documented in HPI. Respiratory symptoms: Negative except as documented in HPI. Cardiovascular symptoms: Negative except as documented in HPI. Gastrointestinal symptoms: Negative except as documented in HPI. Genitourinary symptoms: Negative except as documented in HPI. Musculoskeletal symptoms: Negative except as documented in HPI. Neurologic symptoms: Negative except as documented in HPI. Psychiatric symptoms: Negative except as documented in HPI. Endocrine symptoms: Negative except as documented in HPI. PFSH ED PFSH: Medical History (Updated 05/05/25 @ 09:46 by Whit Victor MD) Ex-cigarette smoker Abnormal liver function test Seizure disorder Rheumatoid aortitis Osteoarthritis Lower extremity edema Hypothyroidism Hypertension Hyperlipidemia Depression COPD (chronic obstructive pulmonary disease) Asthma Surgical History Hx of tonsillectomy History of liver biopsy Family History Mother Heart disease Alcohol dependence Depression Social History Smoking and tobacco/nicotine status: current every day tobacco/nicotine user e-cigarettes E-Cigarette Details: vaporizer device and with nicotine E-cig/vape details: vapes daily-1 vape cartridge weekly Second hand smoke exposure: Yes Alcohol intake: current Substance/Drug Use: current Physical Exam Narrative: EXAM NARRATIVE: General: Alert, no acute distress. Skin: Warm, dry. Head: Normocephalic, atraumatic. Neck: Supple, trachea midline. Eye: Extraocular movements are intact. Ears, nose, mouth and throat: mucosa moist. Cardiovascular: Regular, Normal peripheral perfusion. Respiratory: Lungs are clear to auscultation, respirations are non-labored, breath sounds are equal, Symmetrical chest wall expansion. Gastrointestinal: Soft, Nontender, Non distended Musculoskeletal: Normal ROM, no deformity. Neurological: Alert and oriented, No focal neurological deficit observed. Psychiatric: Cooperative, appropriate mood & affect. Course Vital Signs: Vital signs: Vital Signs Temperature 98.6 F 05/05/25 07:54 Pulse Rate 68 05/05/25 07:54 Respiratory Rate 18 05/05/25 07:54 Blood Pressure 126/66 05/05/25 07:54 Pulse Oximetry 98 05/05/25 07:54 MDM - Seizure MDM Narrative Medical decision making narrative: Medical decision making Patient's reason for coming to the emergency room: Near syncope, rapid response Social determinants: Patient is retired I reviewed the patient's medical record. 59-year-old female with a history of seizures COPD, depression, hyperlipidemia, hypertension,, edema, and rheumatoid arthritis I reviewed the patient's current home meds Patient is on carbamazepine. Alternate historians: None Differential diagnosis including but not limited to and based on the above HPI, review of systems and physical exam in this patient with near syncope: Vasovagal, orthostatics hypotension, cardiac dysrhythmia, myocardial infarction, infection and hypotension, Orders placed to evaluate differential diagnosis based on the above differential, HPI and physical exam Differential diagnosis for this patient with a complaint of seizure like activity would include but not be limited to, and based on the above HPI, review of systems and physical exam: seizure, DT's, alcohol withdrawal, brain malignancy, pseudo-seizure, syncope. Orders placed to evaluate differential diagnosis based on the above differential, HPI and physical exam CT head: She does look like she may have had a superior right occipital lobe attenuation that might be a prior infarct. This was present previously. No acute intracranial process. No intracranial hemorrhage, no evidence of infarct. No evidence of acute fracture. This was reviewed and interpreted by myself the emergency room physician. I also reviewed the radiology report. Patient was contacted and told to follow-up with this with her PCP about possibly having had an old stroke. They may want to place her on aspirin and statin. Chest x-ray: No acute process. No infiltrate. No pneumothorax. This was reviewed and interpreted by myself the emergency room physician. I also reviewed the radiology report. EKG: Time 8:12 AM. Rate 54. Sinus bradycardia., nonspecific ST changes, no ectopy, normal PA & QRS intervals, This was reviewed and interpreted by myself the ER physician at 8:17 AM. Repeat: EKG: Time 9:31 AM. Rate 50. Sinus bradycardia., nonspecific ST changes, no ectopy, normal PA & QRS intervals, This was reviewed and interpreted by myself the ER physician at 8:17 AM. No significant changes from EKG done previously in the emergency room today. Lab Review: Laboratory results were reviewed and interpreted by myself the emergency room physician. No leukocytosis. No anemia. No renal failure. Assessment of risk: Level of risk: Moderate risk. Multiple comorbidities Hospitalization considerations: No indication for hospitalization today Reexamination: Patient says she feels great. She is ready to go home. Patient remained stable. No increased work of breathing. No altered mental status. No focal motor deficits. Assessment and plan: Near syncope Seizure-like activity - Discharged home - Discussed plan with patient. Answered any questions. - Evaluation and treatment of this problem were appropriate in the emergency setting. Lab Data 05/05/25 08:36 05/05/25 08:36 Labs: Radiology Impressions Head CT 05/05/25 07:54 IMPRESSION: 1. No acute intracranial hemorrhage or edema. 2. Area of decreased attenuation in the superior RIGHT occipital lobe may be from a prior infarct. No change since 04/05/2025. Recommend nonurgent MRI brain with and without contrast. Chest X-Ray 05/05/25 07:55 Impression: Atherosclerosis. Laboratory Results WBC 8.74 10^3/uL (3.29-11.43) 05/05/25 08:36 RBC 4.20 10^6/uL (3.85-5.65) 05/05/25 08:36 Hgb 13.20 g/dL (11.27-16.99) 05/05/25 08:36 Hct 38.5 % (36-47) 05/05/25 08:36 MCV 91.7 fl (85-98) 05/05/25 08:36 MCH 31.4 pg (27-33) 05/05/25 08:36 MCHC 34.3 g/dL (30-55) 05/05/25 08:36 RDW 12.6 % (12.1-15.1) 05/05/25 08:36 Plt Count 413 10^3/cmm (157-399) H 05/05/25 08:36 MPV 9.2 fL (7.4-10.4) 05/05/25 08:36 Neut % (Auto) 56.3 % 05/05/25 08:36 Lymph % (Auto) 28.9 % 05/05/25 08:36 [place] % (Auto) 8.2 % 05/05/25 08:36 Eos % (Auto) 5.3 % 05/05/25 08:36 Baso % (Auto) 1.1 % 05/05/25 08:36 Neut # (Auto) 4.91 10^3/uL (1.8-7.7) 05/05/25 08:36 Lymph # (Auto) 2.5 10^3/uL (0.8-4.8) 05/05/25 08:36 [place] # (Auto) 0.7 10^3/uL (0.2-0.9) 05/05/25 08:36 Eos # (Auto) 0.5 10^3/uL (0.0-0.8) 05/05/25 08:36 Baso # (Auto) 0.1 10^3/uL (0.0-0.1) 05/05/25 08:36 Nucleated RBC % (auto) 0 % 05/05/25 08:36 Nucleated RBCs # 0.0 /100WBC 05/05/25 08:36 Sodium 139 mmol/L (136-145) 05/05/25 08:36 Potassium 4.3 mmol/L (3.5-5.1) 05/05/25 08:36 Chloride 104 mmol/L (98-107) 05/05/25 08:36 Carbon Dioxide 22 mmol/L (22-29) 05/05/25 08:36 Anion Gap 17.3 (5-19) 05/05/25 08:36 BUN 15 mg/dL (6-20) 05/05/25 08:36 Creatinine 0.6 mg/dL (0.5-0.9) 05/05/25 08:36 GFR Calculation 103.0 mL/min (90-130) 05/05/25 08:36 Glucose 81 mg/dL (65-115) 05/05/25 08:36 Calculated Osmolality 288 mOsm/kg (285-295) 05/05/25 08:36 Calcium 9.4 mg/dL (8.5-10.5) 05/05/25 08:36 Total Bilirubin 0.3 mg/dL (0.15-1.2) 05/05/25 08:36 AST 19 U/L (0-32) 05/05/25 08:36 ALT 14 U/L (0-33) 05/05/25 08:36 Alkaline Phosphatase 118 U/L (35-105) H 05/05/25 08:36 Troponin T Baseline 7 ng/L (0-10) 05/05/25 08:36 NT-Pro-B Natriuret Pep 103 pg/mL (0-125) 05/05/25 08:36 Total Protein 6.4 g/dL (6.6-8.7) L 05/05/25 08:36 Albumin 4.5 g/dL (3.5-5.2) 05/05/25 08:36 Globulin 1.9 g/dL (1.3-4.6) 05/05/25 08:36 Urine Color Yellow (Yellow) 05/05/25 08:50 Urine Appearance Clear (CLEAR) 05/05/25 08:50 Urine pH 6.5 (5-7) 05/05/25 08:50 Ur Specific [place] 1.028 (1.005-1.030) 05/05/25 08:50 Urine Protein Trace (Negative) A 05/05/25 08:50 Urine Glucose (UA) Negative (Normal) 05/05/25 08:50 Urine Ketones Trace (Negative) 05/05/25 08:50 Urine Blood Negative (Negative) 05/05/25 08:50 Urine Nitrate Negative (Negative) 05/05/25 08:50 Urine Bilirubin Negative (Negative) 05/05/25 08:50 Urine Urobilinogen 1.0 mg/dL (Negative) 05/05/25 08:50 Ur Leukocyte Esterase Trace (Negative) A 05/05/25 08:50 Urine RBC 3-5 /hpf (0-2) 05/05/25 08:50 Urine WBC 0-5 /hpf (0-5) 05/05/25 08:50 Ur Squamous Epith Cells 6-10 /hpf (0-5) 05/05/25 08:50 Amorphous Sediment Not Reportable 05/05/25 08:50 Urine Bacteria 1+ /hpf (NONE) H 05/05/25 08:50 Hyaline Casts 1.21 /lpf 05/05/25 08:50 Urine Opiates Screen Negative ng/mL (Negative) 05/05/25 08:50 Ur Barbiturates Screen Negative ng/mL (Negative) 05/05/25 08:50 Ur Phencyclidine Scrn Negative ng/mL (Negative) 05/05/25 08:50 Ur Amphetamines Screen Negative ng/mL (Negative) 05/05/25 08:50 U Benzodiazepines Scrn Negative ng/mL (Negative) 05/05/25 08:50 Urine Cocaine Screen Negative ng/mL (Negative) 05/05/25 08:50 U Marijuana (THC) Screen Positive ng/mL (Negative) H 05/05/25 08:50 Ethyl Alcohol < 10 mg/dL (0-10) 05/05/25 08:36 Influenza A (PCR) Negative (Negative) 05/05/25 08:09 Influenza Type B (PCR) Negative (Negative) 05/05/25 08:09 RSV (PCR) Negative (Negative) 05/05/25 08:09 SARS-CoV-2 (PCR) Negative (Negative) 05/05/25 08:09 All radiology interpretation(s) finalized by discharge Discharge Plan Discharge Patient Disposition: Home Clinical Impression: Near syncope, Seizure-like activity Condition: Stable Prescriptions: No Action atorvastatin [Lipitor] 20 mg tablet 20 mg PO BEDTIME meloxicam 15 mg tablet 15 mg PO DAILY gabapentin 400 mg capsule 800 mg PO TID spironolactone 25 mg tablet 25 mg PO DAILY carbamazepine [Epitol] 200 mg tablet 200 mg PO TID citalopram 20 mg tablet 20 mg PO BEDTIME furosemide [Lasix] 20 mg tablet 20 mg PO DAILY PRN (Reason: Edema) albuterol sulfate [Ventolin HFA] 90 mcg/actuation HFA aerosol inhaler 2 puff inhalation Q6H PRN (Reason: Shortness Of Breath Or Wheezing) albuterol sulfate 0.63 mg/3 mL solution for nebulization 0.63 mg inhalation QID PRN (Reason: shortness of breath or wheezing) Qty: 90 6RF (DME) nebulizers [facility] [place]ructions .MEDSUPPLY Qty: 1 0RF Rx Instructions: As directed budesonide-formoterol 160-4.5 mcg/actuation HFA aerosol inhaler 2 puff inhalation BID Qty: 10.2 6RF tiotropium bromide 2.5 mcg/actuation mist 2 inh inhalation QAM Qty: 4 6RF famotidine 20 mg Tablet 20 mg PO BID levothyroxine 112 mcg tablet 112 mcg PO QAM levetiracetam 1,000 mg tablet 1,000 mg PO BID Discharge Orders: Discharge ED (Routine); Ordered 05/05/25 Ordered By: Whit Victor Referrals: Rick Edwards MD [Primary Care Provider, Family Practice] Discharge Diet: Usual diet Discharge Activity: Increase activity as tolerated Patient Instructions: Near Syncope (ED), Opioid Safety, Pain Management, Patient Portal & Nnamdi Instructions Activity Restrictions/Additional Instructions: Thank you for choosing [facility] for your healthcare needs today. You have been screened and evaluated and felt safe for discharge. Health conditions do change or evolve sometimes and as such it is important that you follow up with your Primary Doctor to be re checked, 3-5 days is a general good time frame for follow up. You are always welcome to return to the ED for re assessment if your symptoms are worsening or you have new concerns. (Please note that included in your discharge packet is information concerning opioid safety and pain management. This information is given to all patients who are discharged from the ER regardless of their discharge diagnosis or the medicines they usually take or are prescribed.) Print Language: Kinyarwanda Coding Level of Care Code ED Domestic Freight Forwarder for Yuliet White
[2025-05-05 08:45] LABS: Hematocrit 38.5 % (36-47); Hemoglobin 13.20 g/dL (11.27-16.99); Mean Corpuscular HGB Conc 34.3 g/dL (30-55); Mean Corpuscular Hemoglobin 31.4 pg (27-33); Mean Corpuscular Volume 91.7 fl (85-98); Nucleated Red Blood Cells % 0 %; Platelet Count 413 10^3/cmm (157-399); Red Blood Count 4.20 10^6/uL (3.85-5.65); White Blood Count 8.74 10^3/uL (3.29-11.43)
[2025-05-05 08:54] LABS: Respiratory Syncytial Virus Ce NEGATIVE (Negative); SARS-CoV-2 PCR NEGATIVE (Negative)
[2025-05-05 09:09] LABS: Troponin(5th) Baseline 7 ng/L (0-10)
[2025-05-05 09:14] LABS: Glucose Urine UA Negative (Normal); Nitrate Urine Negative (Negative); Specific Gravity, Urine 1.028 (1.005-1.030)
[2025-05-05 09:20] LABS: PCP Screen Urine Negative (Negative)
[2025-05-05 09:28] LABS: Alanine Aminotransferase 14 U/L (0-33); Albumin Level 4.5 g/dL (3.5-5.2); Alkaline Phosphatase 118 U/L (35-105); Anion Gap 17.3 (5-19); Aspartate Amino Transferase 19 U/L (0-32); Blood Urea Nitrogen 15 mg/dL (6-20); Calcium 9.4 mg/dL (8.5-10.5); Carbon Dioxide 22 mmol/L (22-29); Chloride 104 mmol/L (98-107); Globulin 1.9 g/dL (1.3-4.6); Glucose 81 mg/dL (65-115); Osmolality Calculated 288 mOsm/kg (285-295); Potassium 4.3 mmol/L (3.5-5.1); Sodium 139 mmol/L (136-145); Total Protein 6.4 g/dL (6.6-8.7)
[2025-05-05 09:29] LABS: Alcohol Level < 10 mg/dL (0-10)
[2025-05-05 09:30] LABS: NT Pro B Type Natriuretic Pept 103 pg/mL (0-125)
--- NOTE | 2025-05-05 09:31 | ECG_ITS ---
[facility] Date: 2025-[facility]05 Pat Name: Neha Spear Department: Room: Gender: Female Ssn/Ssbn Assistant Navigator: : 1965 Requested By: Whit Paulino Order Number: [id number] Reading MD: ARCENIO ISABEL Measurements Intervals [place] Rate: 50 P: 55 DE: 173 QRS: 22 QRSD: 104 T: 1 QT: 473 QTc: 433 Interpretive Statements SINUS BRADYCARDIA POSSIBLE RIGHT VENTRICULAR CONDUCTION DELAY [RSR (QR) IN V1/V2] MODERATE T-WAVE ABNORMALITY, CONSIDER ANTERIOR ISCHEMIA [-0.1+ mV T-WAVE IN V3/V4] Compared to ECG 05/05/2025 08:12:44 Possible ischemia now present T-wave abnormality still present Electronically Signed On 05-06-2025 20:38:42 ADDICTION COUNSELOR by ARCENIO ISABEL [email or web address]
[2025-05-05 10:02] VITALS: BP 99/56; PULSE 59; RESP 17; O2SAT 97
== END 2025-05-05 10:03 | disposition home or self-care (01) ==
PROVIDERS: Emergency Provider Emergency Medicine; PCP Family Medicine
DX: R55 Syncope and collapse (principal); R56.9 Unspecified convulsions; Z11.52 Encounter for screening for COVID-19; F17.290 Nicotine dependence, other tobacco product, uncomplicated; J44.9 Chronic obstructive pulmonary disease, unspecified; E78.5 Hyperlipidemia, unspecified; I10 Essential (primary) hypertension
CPT/HCPCS: 36415; 70450; 71045; 80053; 80306; 80307; 81001; 83880; 84484; 85025; 87637; 93005; 99285